=== PATIENT | male | born 1960 | race Caucasian/White ===

== ENCOUNTER → 2019-10-16 | Day surgery (SDC) | payer SELFPAY ==
[~2019-10-16] VITALS: Ht 167.6 cm; Wt 117.9 kg
[2019-10-16] VITALS (8 sets, daily range): BP systolic 108–149; BP diastolic 63–95
[~2019-10-16] MED LIST: ASPIRIN 81 MG CHEW TAB ONE; FENTANYL CITRATE/PF 100MCG/2 ML INJ ONE; HEPARIN SOD (PORCINE) 1000 UNIT/ML 30ML ONE; HEPARIN SOD/SOD CHLORIDE 2,000 ML ONE; IOPAMIDOL 370 MG/ML 200 ML INFUS..BTL INJ ONE; LIDOCAINE HCL 2% LOCAL 20 ML VIAL ONE; MIDAZOLAM HCL 2 MG/2 ML VIAL ONE; MORPHINE SULFATE INJ 4 MG/ML INJ 1ML IV PRN; MORPHINE SULFATE INJ 4 MG/ML INJ 1ML IV STA; NITROGLYCERIN/D5W 200 MCG/ML 250 ML ONE; ONDANSETRON HCL INJ 2MG/ML 2ML 2 MG/ML VIAL IV ONE; ONDANSETRON HCL INJ 2MG/ML 2ML 2 MG/ML VIAL IV PRN; SODIUM CHLORIDE 0.9% 1000ML 1,000 ML ONE; VERAPAMIL HCL 2.5 MG/ML 2 ML VIAL ONE
--- NOTE | 2019-10-16 20:38 | NUR ---
cath team call out per instructions of ER, per Dr. Stanford
[2019-10-16 20:41] LABS: BASOPHILS # (AUTO) 0.1 (0.0-0.1); BASOPHILS % 0.6 % (0.0-1.0); EOSINOPHILS # (AUTO) 0.2 (0.0-0.4); HEMATOCRIT 30.5 % (38.2-49.6); HEMOGLOBIN 9.3 g/dL (14.0-18.0); LYMPHOCYTES # (AUTO) 1.8 (1.0-3.2); LYMPHOCYTES % 20.7 % (18.0-39.1); MEAN CORPUSCULAR HEMOGLOBIN 24.8 pg (28-32); MEAN CORPUSCULAR HGB CONC 30.5 g/dL (31-35); MEAN CORPUSCULAR VOLUME 81.3 fL (81-99); MONOCYTES # (AUTO) 0.6 (0.2-0.8); MONOCYTES % 6.5 % (4.4-11.3); NEUTROPHILS # (AUTO) 6.2 (2.1-6.9); NEUTROPHILS % 69.6 % (38.7-80.0); PLATELET COUNT 308 x10e3/uL (140-360); RED BLOOD COUNT 3.75 x10e6/uL (4.3-5.7); RED CELL DISTRIBUTION WIDTH 16.6 % (11.7-14.4)
[2019-10-16 21:01] LABS: INR 1.16; PROTHROMBIN TIME 15.4 seconds (11.9-14.5)
[2019-10-16 21:02] LABS: PARTIAL THROMBOPLASTIN TIME 29.5 seconds (23.8-35.5)
[2019-10-16] MEDS: ASPIRIN 325 MG TAB PO ONE (21:08)
[2019-10-16] MEDS: HEPARIN SOD (PORCINE) 5,000 UNIT/ML VIAL IV STA (21:08)
[2019-10-16 21:10] LABS: ALANINE AMINOTRANSFERASE 50 IU/L (0-55); ALBUMIN 3.4 g/dL (3.5-5.0); ALBUMIN/GLOBULIN RATIO 0.9 (0.8-2.0); ALKALINE PHOSPHATASE 103 IU/L (40-150); ANION GAP 18.1 mmol/L (8-16); BLOOD UREA NITROGEN 30 mg/dL (7-26); BUN/CREATININE RATIO 24 (6-25); CALCIUM 9.2 mg/dL (8.4-10.2); CARBON DIOXIDE 21 mmol/L (22-29); CHLORIDE 103 mmol/L (98-107); CREATINE KINASE 89 IU/L (30-200); CREATININE, SERUM 1.24 mg/dL (0.72-1.25); EST GLOMERULAR FILTRATION RATE 60 ML/MIN (60-); GLUCOSE 289 mg/dL (74-118); POTASSIUM 5.1 mmol/L (3.5-5.1); SODIUM 137 mmol/L (136-145)
--- NOTE | 2019-10-16 21:21 | Diagnostic Imaging Report ---
Examination: Single AP view of the chest. COMPARISON: None. INDICATION: Angina DISCUSSION: Lines/tubes: None. Lungs: Pulmonary venous congestion. No pneumonia. Pleura: No pleural effusion or pneumothorax. Heart and mediastinum: Cardiomegaly Bones and soft tissues: No acute bony abnormalities. IMPRESSION: Cardiomegaly and pulmonary venous congestion Signed by: Dr. Lit Gallegos M.D. on 10/16/2019 9:18 PM
== END | disposition short-term general hospital (02) ==
LOC: ER 19:23 → ERHOLD 20:39 → UNDOADMIN 20:39 → CATH LAB 21:15
PROVIDERS: ATTEND Internal Medicine Interventional Cardiology
DX: I21.4 Non-ST elevation (NSTEMI) myocardial infarction (principal); I44.7 Left bundle-branch block, unspecified; R94.31 Abnormal electrocardiogram [ECG] [EKG]; I51.7 Cardiomegaly; I50.1 Left ventricular failure, unspecified
CPT/HCPCS: 36415; 71045; 80053; 82550; 82553; 83880; 84484; 85025; 85379; 85610; 85730; 93005; 93454; 99284; C1769; C1887; J1644 ×2; J2001; J2250; J2405; J3010; J7030; Q9967; 99152

== ENCOUNTER 2020-09-15 14:35 | Inpatient (IN) | payer MEDICAID ==
[~2020-09-15] VITALS: Ht 167.6 cm; Wt 114.0 kg
[2020-09-15] MEDS ORDERED: SODIUM CHLORIDE 0.9% 1000ML 1,000 ML IV STA (15:18)
[2020-09-15 15:48] LABS: BASOPHILS % 0.5 % (0.0-1.0); EOSINOPHILS # (AUTO) 0.2 (0.0-0.4); EOSINOPHILS % 2.5 % (0.0-6.0); HEMATOCRIT 32.8 % (38.2-49.6); LYMPHOCYTES # (AUTO) 0.7 (1.0-3.2); LYMPHOCYTES % 7.9 % (18.0-39.1); MEAN CORPUSCULAR HEMOGLOBIN 24.4 pg (28-32); MEAN CORPUSCULAR HGB CONC 30.5 g/dL (31-35); MONOCYTES # (AUTO) 0.6 (0.2-0.8); MONOCYTES % 6.5 % (4.4-11.3); NEUTROPHILS # (AUTO) 7.1 (2.1-6.9); NEUTROPHILS % 82.3 % (38.7-80.0); PLATELET COUNT 239 x10e3/uL (140-360); RED CELL DISTRIBUTION WIDTH 19.6 % (11.7-14.4)
[2020-09-15 15:59] LABS: INR 1.34; PARTIAL THROMBOPLASTIN TIME 27.3 seconds (23.8-35.5); PROTHROMBIN TIME 17.2 seconds (11.9-14.5)
[2020-09-15 16:10] LABS: CREATINE KINASE MB 10.7 ng/mL (0-5.0)
[2020-09-15] MEDS ORDERED: NOREPINEPHRINE INJ 4MG/4ML 8 MG in DEXTROSE 5% 250ML 250 ML IV STA (16:33)
[2020-09-15] MEDS ORDERED: NOREPINEPHRINE 8 MG/D5W 250 ML 250 ML ONE (17:01)
[2020-09-15] MEDS: CEFEPIME 2 GM/NS 0.9% 100 ML 100 ML IV SCH (17:25)
[2020-09-15 17:33] LABS: CLARITY,URINE CLOUDY (CLEAR); COLOR,URINE AMBER (YELLOW); KETONES,URINE TRACE (NEGATIVE); LEUKOCYTE ESTERASE ,URINE NEGATIVE (NEGATIVE); NITRITE,URINE NEGATIVE (NEGATIVE); PROTEIN,URINE DIPSTICK 1+ (NEGATIVE); URINE UROBILINOGEN 0.2 mg/dL (0.2 - 1)
[2020-09-15] MEDS ORDERED: VANCOMYCIN 1GM/NS 250 ML 250 ML IV ONE (17:45)
[2020-09-15 17:59] LABS: BACTERIA,URINE MANY /HPF; EPITHELIAL CELLS,URINE FEW /LPF
[2020-09-15] MEDS ORDERED: SODIUM CHLORIDE 0.9% 1000ML 1,000 ML ONE (19:24)
[2020-09-15 20:30] VITALS: BP 101/68
[2020-09-15 20:31] VITALS: BP 101/68
[2020-09-15 21:00] VITALS: BP 118/93
[2020-09-15] MEDS: ZOLPIDEM TARTRATE 5 MG TAB PO PRN (21:29)
[2020-09-15 22:00] VITALS: BP 130/92
[2020-09-15] MEDS ORDERED: SOD POLYSTYRENE SULFONATE SUSP 15 GM/60 ML BTL PO ONE (22:00)
[2020-09-15] MEDS ORDERED: MELATONIN10 M1 PO (22:03)
[2020-09-15] MEDS ORDERED: CLOPIDOGREL75 MG PO (22:03)
[2020-09-15] MEDS ORDERED: ATORVASTATIN CA20 MG PO (22:03)
[2020-09-15] MEDS ORDERED: CO Q-10200 MG PO (22:03)
[2020-09-15] MEDS ORDERED: GABAPENTIN300 MG PO (22:03)
[2020-09-15] MEDS ORDERED: GLIMEPIRIDE2 MG PO (22:03)
[2020-09-15] MEDS ORDERED: LISINOPRIL10 MG PO (22:03)
[2020-09-15] MEDS ORDERED: CLONAZEPAM0.5 MG PO (22:03)
[2020-09-15] MEDS ORDERED: METOLAZONE5 MG PO (22:03)
[2020-09-15] MEDS ORDERED: CARVEDILOL3.125 MG PO (22:03)
[2020-09-15] MEDS ORDERED: ASPIRIN81 MG PO (22:03)
[2020-09-15 22:56] LABS: ALBUMIN/GLOBULIN RATIO 0.7 (0.8-2.0); ANION GAP 24.4 mmol/L (8-16); CALCIUM 8.1 mg/dL (8.4-10.2); CREATININE, SERUM 4.94 mg/dL (0.72-1.25)
[2020-09-15] MEDS ORDERED: DEXTROSE 50% SYRINGE 50 ML IV STA (22:56)
[2020-09-15 23:00] VITALS: BP 138/87
[2020-09-15] MEDS ORDERED: FUROSEMIDE INJ 10 MG/ML 4 ML VIAL IV ONE (23:00)
[2020-09-15] MEDS ORDERED: CALCIUM GLUCONATE 10% INJ 4.65 MEQ in SODIUM CHLORIDE 0.9% 50ML 50 ML IV ONE (23:00)
[2020-09-15] MEDS ORDERED: INSULIN REGULAR, HUMAN 100 UNIT/1 ML 3ML VIAL IV ONE (23:00)
[2020-09-15 23:04] LABS: POTASSIUM 6.4 mmol/L (3.5-5.1)
[2020-09-16] VITALS (24 sets, daily range): BP systolic 73–146; BP diastolic 45–124
[2020-09-16 01:43] LABS: CREATINE KINASE MB 10.2 ng/mL (0-5.0)
[2020-09-16] MEDS ORDERED: NOREPINEPHRINE INJ 4MG/4ML 8 MG in DEXTROSE 5% 250ML 250 ML IV SCH (03:15)
[2020-09-16] MEDS ORDERED: NOREPINEPHRINE 8 MG/D5W 250 ML 250 ML ONE (03:26)
[2020-09-16] MEDS: NOREPINEPHRINE INJ 4MG/4ML 8 MG in DEXTROSE 5% 250ML 250 ML IV SCH (03:55)
[2020-09-16] MEDS: CEFEPIME 2 GM/NS 0.9% 100 ML 100 ML IV SCH ×2 (05:29→16:04)
[2020-09-16 05:56] LABS: BASOPHILS # (AUTO) 0.1 (0.0-0.1); BASOPHILS % 0.6 % (0.0-1.0); EOSINOPHILS # (AUTO) 0.3 (0.0-0.4); HEMATOCRIT 32.1 % (38.2-49.6); MEAN CORPUSCULAR HEMOGLOBIN 24.4 pg (28-32); MEAN CORPUSCULAR HGB CONC 31.2 g/dL (31-35); MEAN CORPUSCULAR VOLUME 78.3 fL (81-99); MONOCYTES # (AUTO) 0.9 (0.2-0.8); MONOCYTES % 8.9 % (4.4-11.3); NEUTROPHILS # (AUTO) 7.4 (2.1-6.9); PLATELET COUNT 274 x10e3/uL (140-360); RED CELL DISTRIBUTION WIDTH 19.2 % (11.7-14.4)
[2020-09-16 06:29] LABS: ALBUMIN/GLOBULIN RATIO 0.8 (0.8-2.0); ANION GAP 17.4 mmol/L (8-16); CALCIUM 8.8 mg/dL (8.4-10.2); CHOL/HDL RATIO 3.7 (3.9-4.7); CREATININE, SERUM 4.23 mg/dL (0.72-1.25); POTASSIUM 5.4 mmol/L (3.5-5.1)
[2020-09-16 06:57] LABS: CREATINE KINASE MB 7.3 ng/mL (0-5.0)
[2020-09-16] MEDS ORDERED: LIDOCAINE HCL 2% LOCAL 20 ML VIAL ONE (08:23)
[2020-09-16] MEDS ORDERED: LIDOCAINE HCL 2% LOCAL 20 ML VIAL INJ ONE (08:30)
[2020-09-16] MEDS ORDERED: DEXTROSE 50% SYRINGE 50 ML IV PRN (10:00)
[2020-09-16] MEDS: INSULIN LISPRO 100 UNIT/1 ML 3ML VIAL SQ SCH ×3 (11:41→21:00)
[2020-09-16] MEDS ORDERED: SODIUM CHLORIDE 0.9% 1000ML 2,000 ML ONE (16:26)
[2020-09-16] MEDS ORDERED: HEPARIN SOD (PORCINE) 1000 UNIT/ML SDV IV PRN (16:30)
[2020-09-16] MEDS ORDERED: SODIUM CHLORIDE 0.9% 1000ML 2,000 ML IV PRN (16:30)
[2020-09-16 17:15] LABS: CREATINE KINASE MB 3.6 ng/mL (0-5.0)
[2020-09-16] MEDS: MELATONIN 5 MG TABLET PO SCH (21:00)
[2020-09-17] VITALS (27 sets, daily range): BP systolic 64–124; BP diastolic 44–99
[2020-09-17] MEDS: ZOLPIDEM TARTRATE 5 MG TAB PO PRN (00:20)
[2020-09-17] MEDS: NOREPINEPHRINE INJ 4MG/4ML 8 MG in DEXTROSE 5% 250ML 250 ML IV SCH (03:30)
[2020-09-17 04:56] LABS: BASOPHILS % 0.4 % (0.0-1.0); EOSINOPHILS # (AUTO) 0.1 (0.0-0.4); EOSINOPHILS % 1.1 % (0.0-6.0); HEMOGLOBIN 9.7 g/dL (14.0-18.0); LYMPHOCYTES # (AUTO) 0.9 (1.0-3.2); LYMPHOCYTES % 7.7 % (18.0-39.1); MEAN CORPUSCULAR HEMOGLOBIN 24.6 pg (28-32); MEAN CORPUSCULAR HGB CONC 31.3 g/dL (31-35); MEAN CORPUSCULAR VOLUME 78.5 fL (81-99); MONOCYTES # (AUTO) 0.9 (0.2-0.8); MONOCYTES % 8.3 % (4.4-11.3); NEUTROPHILS # (AUTO) 9.2 (2.1-6.9); NEUTROPHILS % 82.1 % (38.7-80.0); RED BLOOD COUNT 3.95 x10e6/uL (4.3-5.7); RED CELL DISTRIBUTION WIDTH 19.8 % (11.7-14.4)
[2020-09-17 05:00] LABS: PLATELET COUNT 231 x10e3/uL (140-360)
[2020-09-17 05:26] LABS: ALBUMIN 2.7 g/dL (3.5-5.0); ALBUMIN/GLOBULIN RATIO 0.7 (0.8-2.0); ANION GAP 17.1 mmol/L (8-16); CREATININE, SERUM 2.48 mg/dL (0.72-1.25); POTASSIUM 4.1 mmol/L (3.5-5.1)
[2020-09-17] MEDS: CEFEPIME 2 GM/NS 0.9% 100 ML 100 ML IV SCH ×2 (05:36→17:29)
[2020-09-17] MEDS: CLOPIDOGREL BISULFATE 75 MG TAB PO SCH (08:19)
[2020-09-17] MEDS: INSULIN LISPRO 100 UNIT/1 ML 3ML VIAL SQ SCH ×4 (08:20→21:16)
[2020-09-17] MEDS: ACETAMINOPHEN 325 MG TAB PO PRN (11:45)
[2020-09-17] MEDS: MELATONIN 5 MG TABLET PO SCH (21:07)
[2020-09-17] MEDS: NOREPINEPHRINE 8 MG/D5W 250 ML 250 ML IV PRN (22:03)
[2020-09-18] VITALS (26 sets, daily range): BP systolic 83–115; BP diastolic 44–90
[2020-09-18] MEDS: NOREPINEPHRINE 8 MG/D5W 250 ML 250 ML IV PRN (03:41)
[2020-09-18 04:48] LABS: BASOPHILS # (AUTO) 0.1 (0.0-0.1); BASOPHILS % 0.3 % (0.0-1.0); EOSINOPHILS % 0.1 % (0.0-6.0); HEMATOCRIT 34.2 % (38.2-49.6); HEMOGLOBIN 10.6 g/dL (14.0-18.0); LYMPHOCYTES % 4.8 % (18.0-39.1); MEAN CORPUSCULAR HEMOGLOBIN 24.4 pg (28-32); MEAN CORPUSCULAR VOLUME 78.8 fL (81-99); MONOCYTES # (AUTO) 1.6 (0.2-0.8); MONOCYTES % 7.3 % (4.4-11.3); NEUTROPHILS # (AUTO) 18.3 (2.1-6.9); NEUTROPHILS % 86.7 % (38.7-80.0); PLATELET COUNT 255 x10e3/uL (140-360); RED BLOOD COUNT 4.34 x10e6/uL (4.3-5.7); RED CELL DISTRIBUTION WIDTH 19.9 % (11.7-14.4)
[2020-09-18] MEDS: CEFEPIME 2 GM/NS 0.9% 100 ML 100 ML IV SCH (05:26)
[2020-09-18 08:13] LABS: CALCIUM 8.3 mg/dL (8.4-10.2); CREATININE, SERUM 1.94 mg/dL (0.72-1.25)
[2020-09-18] MEDS: INSULIN LISPRO 100 UNIT/1 ML 3ML VIAL SQ SCH ×4 (08:26→21:36)
[2020-09-18] MEDS: CLOPIDOGREL BISULFATE 75 MG TAB PO SCH (08:28)
[2020-09-18] MEDS ORDERED: DIATRIZOATE MEGL/DIATRIZOA SOD 30 ML BTL PO ONE (15:51)
[2020-09-18 16:31] LABS: THYROID STIMULATING HORMONE 0.725 uIU/mL (0.350-4.940)
[2020-09-18] MEDS: METRONIDAZOLE 500MG/NS 100ML 100 ML IV SCH (16:31)
[2020-09-18] MEDS: MELATONIN 5 MG TABLET PO SCH (21:33)
[2020-09-19] VITALS (33 sets, daily range): BP systolic 80–137; BP diastolic 34–86
[2020-09-19] MEDS: METRONIDAZOLE 500MG/NS 100ML 100 ML IV SCH ×3 (01:02→16:51)
[2020-09-19] MEDS: NOREPINEPHRINE 8 MG/D5W 250 ML 250 ML IV PRN ×2 (03:36→13:35)
[2020-09-19 04:39] LABS: BASOPHILS % 0.2 % (0.0-1.0); EOSINOPHILS # (AUTO) 0.1 (0.0-0.4); EOSINOPHILS % 0.2 % (0.0-6.0); HEMATOCRIT 30.9 % (38.2-49.6); HEMOGLOBIN 9.5 g/dL (14.0-18.0); LYMPHOCYTES # (AUTO) 0.9 (1.0-3.2); LYMPHOCYTES % 4.2 % (18.0-39.1); MEAN CORPUSCULAR HEMOGLOBIN 24.3 pg (28-32); MEAN CORPUSCULAR HGB CONC 30.7 g/dL (31-35); MONOCYTES # (AUTO) 1.5 (0.2-0.8); MONOCYTES % 7.2 % (4.4-11.3); NEUTROPHILS # (AUTO) 18.5 (2.1-6.9); NEUTROPHILS % 87.4 % (38.7-80.0); PLATELET COUNT 214 x10e3/uL (140-360); RED BLOOD COUNT 3.91 x10e6/uL (4.3-5.7); RED CELL DISTRIBUTION WIDTH 19.9 % (11.7-14.4)
[2020-09-19 05:03] LABS: ANION GAP 15.5 mmol/L (8-16); CALCIUM 7.9 mg/dL (8.4-10.2); CREATININE, SERUM 1.9 mg/dL (0.72-1.25); POTASSIUM 3.5 mmol/L (3.5-5.1)
[2020-09-19] MEDS: INSULIN LISPRO 100 UNIT/1 ML 3ML VIAL SQ SCH ×4 (07:30→20:41)
[2020-09-19] MEDS: VANCOMYCIN 250MG/5ML ORAL SOLN PO SCH ×3 (09:10→22:30)
[2020-09-19] MEDS: CLOPIDOGREL BISULFATE 75 MG TAB PO SCH (09:10)
[2020-09-19] MEDS ORDERED: POTASSIUM CHLORIDE 20 MEQ TAB CR PO ONE (17:45)
[2020-09-19] MEDS: MELATONIN 5 MG TABLET PO SCH (20:41)
[2020-09-20] VITALS (26 sets, daily range): BP systolic 81–112; BP diastolic 54–75
[2020-09-20] MEDS: METRONIDAZOLE 500MG/NS 100ML 100 ML IV SCH ×3 (01:56→16:51)
[2020-09-20] MEDS: VANCOMYCIN 250MG/5ML ORAL SOLN PO SCH ×3 (05:34→21:11)
[2020-09-20 05:54] LABS: BASOPHILS % 0.2 % (0.0-1.0); EOSINOPHILS # (AUTO) 0.2 (0.0-0.4); EOSINOPHILS % 0.9 % (0.0-6.0); HEMATOCRIT 31.2 % (38.2-49.6); HEMOGLOBIN 9.6 g/dL (14.0-18.0); LYMPHOCYTES # (AUTO) 0.8 (1.0-3.2); LYMPHOCYTES % 3.9 % (18.0-39.1); MEAN CORPUSCULAR HEMOGLOBIN 24.7 pg (28-32); MEAN CORPUSCULAR HGB CONC 30.8 g/dL (31-35); MEAN CORPUSCULAR VOLUME 80.4 fL (81-99); MONOCYTES # (AUTO) 1.4 (0.2-0.8); MONOCYTES % 6.7 % (4.4-11.3); NEUTROPHILS # (AUTO) 17.9 (2.1-6.9); NEUTROPHILS % 87.6 % (38.7-80.0); PLATELET COUNT 232 x10e3/uL (140-360); RED BLOOD COUNT 3.88 x10e6/uL (4.3-5.7); RED CELL DISTRIBUTION WIDTH 19.9 % (11.7-14.4)
[2020-09-20 06:27] LABS: ANION GAP 14.6 mmol/L (8-16); CREATININE, SERUM 2.2 mg/dL (0.72-1.25); POTASSIUM 3.6 mmol/L (3.5-5.1)
[2020-09-20 06:37] LABS: CALCIUM 7.9 mg/dL (8.4-10.2)
[2020-09-20 06:58] LABS: MAGNESIUM 2.3 MG/DL (1.3-2.1); PHOSPHORUS 4.3 MG/DL (2.3-4.7)
[2020-09-20] MEDS: INSULIN LISPRO 100 UNIT/1 ML 3ML VIAL SQ SCH ×4 (07:50→20:46)
[2020-09-20] MEDS: CLOPIDOGREL BISULFATE 75 MG TAB PO SCH (08:08)
[2020-09-20] MEDS: CEFEPIME 1GM/NS 0.9% 50 ML 50 ML IV SCH (15:58)
[2020-09-20] MEDS: FUROSEMIDE INJ 10 MG/ML 4 ML VIAL IV SCH ×2 (15:58→20:12)
[2020-09-20] MEDS: MELATONIN 5 MG TABLET PO SCH (20:12)
[2020-09-21] VITALS (18 sets, daily range): BP systolic 71–124; BP diastolic 53–92
[2020-09-21] MEDS: METRONIDAZOLE 500MG/NS 100ML 100 ML IV SCH ×3 (01:51→17:22)
[2020-09-21] MEDS: VANCOMYCIN 250MG/5ML ORAL SOLN PO SCH ×3 (05:43→22:13)
[2020-09-21 06:19] LABS: ANION GAP 16.6 mmol/L (8-16); CALCIUM 7.9 mg/dL (8.4-10.2); CREATININE, SERUM 2.72 mg/dL (0.72-1.25); POTASSIUM 3.6 mmol/L (3.5-5.1)
[2020-09-21 06:34] LABS: BASOPHILS # (AUTO) 0.1 (0.0-0.1); BASOPHILS % 0.2 % (0.0-1.0); EOSINOPHILS # (AUTO) 0.2 (0.0-0.4); EOSINOPHILS % 0.8 % (0.0-6.0); HEMATOCRIT 32.9 % (38.2-49.6); LYMPHOCYTES # (AUTO) 0.8 (1.0-3.2); LYMPHOCYTES % 3.7 % (18.0-39.1); MEAN CORPUSCULAR HEMOGLOBIN 24.2 pg (28-32); MEAN CORPUSCULAR HGB CONC 30.4 g/dL (31-35); MEAN CORPUSCULAR VOLUME 79.5 fL (81-99); MONOCYTES # (AUTO) 1.7 (0.2-0.8); MONOCYTES % 8.5 % (4.4-11.3); NEUTROPHILS # (AUTO) 17.5 (2.1-6.9); NEUTROPHILS % 86.2 % (38.7-80.0); PLATELET COUNT 274 x10e3/uL (140-360); RED BLOOD COUNT 4.14 x10e6/uL (4.3-5.7); RED CELL DISTRIBUTION WIDTH 19.9 % (11.7-14.4)
[2020-09-21] MEDS: INSULIN LISPRO 100 UNIT/1 ML 3ML VIAL SQ SCH ×4 (07:57→22:05)
[2020-09-21] MEDS: FUROSEMIDE INJ 10 MG/ML 4 ML VIAL IV SCH (08:06)
[2020-09-21] MEDS: CLOPIDOGREL BISULFATE 75 MG TAB PO SCH (08:06)
[2020-09-21] MEDS: MIDODRINE HCL 5 MG TABLET PO SCH ×3 (08:25→17:21)
[2020-09-21] MEDS: ONDANSETRON HCL INJ 2MG/ML 2ML 2 MG/ML VIAL IV PRN (09:19)
[2020-09-21] MEDS: ACETAMINOPHEN 325 MG TAB PO PRN (09:19)
[2020-09-21] MEDS: NOREPINEPHRINE 8 MG/D5W 250 ML 250 ML IV PRN ×2 (09:32→17:18)
[2020-09-21] MEDS ORDERED: ALBUMIN 25% 12.5GM 50ML 100 ML IV ONE (12:30)
[2020-09-21] MEDS ORDERED: ALBUMIN 25% 25GM 100ML 0.25 GM/ML BTL IV ONE (12:30)
[2020-09-21] MEDS: CLONAZEPAM 0.5 MG TAB PO PRN (13:00)
[2020-09-21] MEDS: CEFEPIME 1GM/NS 0.9% 50 ML 50 ML IV SCH (13:56)
[2020-09-21] MEDS: MELATONIN 5 MG TABLET PO SCH (22:04)
[2020-09-22] VITALS (15 sets, daily range): BP systolic 84–129; BP diastolic 54–83
[2020-09-22] MEDS: METRONIDAZOLE 500MG/NS 100ML 100 ML IV SCH ×2 (01:51→07:23)
[2020-09-22] MEDS: ONDANSETRON HCL INJ 2MG/ML 2ML 2 MG/ML VIAL IV PRN (01:52)
[2020-09-22] MEDS: VANCOMYCIN 250MG/5ML ORAL SOLN PO SCH ×2 (06:04→13:39)
[2020-09-22 07:15] LABS: BASOPHILS % 0.2 % (0.0-1.0); EOSINOPHILS # (AUTO) 0.3 (0.0-0.4); EOSINOPHILS % 1.5 % (0.0-6.0); HEMOGLOBIN 9.7 g/dL (14.0-18.0); LYMPHOCYTES # (AUTO) 0.9 (1.0-3.2); LYMPHOCYTES % 5.5 % (18.0-39.1); MEAN CORPUSCULAR HEMOGLOBIN 24.3 pg (28-32); MEAN CORPUSCULAR HGB CONC 30.3 g/dL (31-35); MONOCYTES # (AUTO) 1.6 (0.2-0.8); MONOCYTES % 9.7 % (4.4-11.3); NEUTROPHILS # (AUTO) 13.8 (2.1-6.9); NEUTROPHILS % 81.9 % (38.7-80.0); PLATELET COUNT 308 x10e3/uL (140-360)
[2020-09-22] MEDS: INSULIN LISPRO 100 UNIT/1 ML 3ML VIAL SQ SCH ×4 (07:15→20:50)
[2020-09-22] MEDS: MIDODRINE HCL 5 MG TABLET PO SCH ×3 (07:23→16:30)
[2020-09-22] MEDS: CLONAZEPAM 0.5 MG TAB PO PRN (07:24)
[2020-09-22] MEDS: CLOPIDOGREL BISULFATE 75 MG TAB PO SCH (07:24)
[2020-09-22 07:34] LABS: ALBUMIN 2.5 g/dL (3.5-5.0); ALBUMIN/GLOBULIN RATIO 0.6 (0.8-2.0); ANION GAP 19.7 mmol/L (8-16); CALCIUM 7.9 mg/dL (8.4-10.2); CREATININE, SERUM 2.65 mg/dL (0.72-1.25); POTASSIUM 3.7 mmol/L (3.5-5.1)
[2020-09-22] MEDS: NOREPINEPHRINE 8 MG/D5W 250 ML 250 ML IV PRN (08:48)
[2020-09-22] MEDS: FUROSEMIDE INJ 10 MG/ML 4 ML VIAL IV SCH (11:32)
[2020-09-22] MEDS: MELATONIN 5 MG TABLET PO SCH (20:50)
[2020-09-23] VITALS (16 sets, daily range): BP systolic 78–118; BP diastolic 47–91
[2020-09-23 05:30] LABS: BASOPHILS % 0.3 % (0.0-1.0); EOSINOPHILS # (AUTO) 0.2 (0.0-0.4); EOSINOPHILS % 1.7 % (0.0-6.0); HEMATOCRIT 31.6 % (38.2-49.6); HEMOGLOBIN 9.7 g/dL (14.0-18.0); LYMPHOCYTES # (AUTO) 0.8 (1.0-3.2); LYMPHOCYTES % 5.5 % (18.0-39.1); MEAN CORPUSCULAR HEMOGLOBIN 24.6 pg (28-32); MEAN CORPUSCULAR HGB CONC 30.7 g/dL (31-35); MEAN CORPUSCULAR VOLUME 80.2 fL (81-99); MONOCYTES # (AUTO) 1.5 (0.2-0.8); MONOCYTES % 10.2 % (4.4-11.3); NEUTROPHILS # (AUTO) 11.5 (2.1-6.9); NEUTROPHILS % 80.8 % (38.7-80.0); PLATELET COUNT 347 x10e3/uL (140-360); RED BLOOD COUNT 3.94 x10e6/uL (4.3-5.7); RED CELL DISTRIBUTION WIDTH 19.6 % (11.7-14.4)
[2020-09-23 05:50] LABS: ANION GAP 20.7 mmol/L (8-16); CALCIUM 7.9 mg/dL (8.4-10.2); CREATININE, SERUM 3.35 mg/dL (0.72-1.25); MAGNESIUM 2.1 MG/DL (1.3-2.1); PHOSPHORUS 3.9 MG/DL (2.3-4.7); POTASSIUM 3.7 mmol/L (3.5-5.1)
[2020-09-23] MEDS: INSULIN LISPRO 100 UNIT/1 ML 3ML VIAL SQ SCH ×4 (07:21→21:19)
[2020-09-23] MEDS: MIDODRINE HCL 5 MG TABLET PO SCH ×3 (07:57→16:21)
[2020-09-23] MEDS: FUROSEMIDE INJ 10 MG/ML 4 ML VIAL IV SCH (08:56)
[2020-09-23] MEDS: CLOPIDOGREL BISULFATE 75 MG TAB PO SCH (08:56)
[2020-09-23] MEDS ORDERED: LOPERAMIDE HCL 2 MG CAP PO PRN (09:00)
[2020-09-23] MEDS: ONDANSETRON HCL INJ 2MG/ML 2ML 2 MG/ML VIAL IV PRN (17:53)
[2020-09-23] MEDS: MELATONIN 5 MG TABLET PO SCH (21:19)
[2020-09-24] VITALS (29 sets, daily range): BP systolic 65–137; BP diastolic 46–107
[2020-09-24 06:29] LABS: BASOPHILS % 0.3 % (0.0-1.0); EOSINOPHILS # (AUTO) 0.3 (0.0-0.4); EOSINOPHILS % 2.1 % (0.0-6.0); HEMATOCRIT 31.2 % (38.2-49.6); HEMOGLOBIN 9.5 g/dL (14.0-18.0); LYMPHOCYTES # (AUTO) 0.9 (1.0-3.2); LYMPHOCYTES % 6.9 % (18.0-39.1); MEAN CORPUSCULAR HEMOGLOBIN 24.4 pg (28-32); MEAN CORPUSCULAR HGB CONC 30.4 g/dL (31-35); MEAN CORPUSCULAR VOLUME 80.2 fL (81-99); MONOCYTES # (AUTO) 0.9 (0.2-0.8); MONOCYTES % 7.2 % (4.4-11.3); NEUTROPHILS # (AUTO) 10.5 (2.1-6.9); NEUTROPHILS % 82.3 % (38.7-80.0); PLATELET COUNT 365 x10e3/uL (140-360); RED BLOOD COUNT 3.89 x10e6/uL (4.3-5.7); RED CELL DISTRIBUTION WIDTH 19.8 % (11.7-14.4)
[2020-09-24 06:48] LABS: ALBUMIN/GLOBULIN RATIO 0.5 (0.8-2.0); ANION GAP 18.8 mmol/L (8-16); CALCIUM 7.8 mg/dL (8.4-10.2); CREATININE, SERUM 4.18 mg/dL (0.72-1.25); POTASSIUM 3.8 mmol/L (3.5-5.1)
[2020-09-24 07:10] LABS: ANION GAP 18.8 mmol/L (8-16); CALCIUM 7.8 mg/dL (8.4-10.2); CREATININE, SERUM 4.24 mg/dL (0.72-1.25); MAGNESIUM 2.1 MG/DL (1.3-2.1); POTASSIUM 3.8 mmol/L (3.5-5.1)
[2020-09-24] MEDS: INSULIN LISPRO 100 UNIT/1 ML 3ML VIAL SQ SCH ×4 (07:30→22:23)
[2020-09-24] MEDS: FUROSEMIDE INJ 10 MG/ML 4 ML VIAL IV SCH (08:12)
[2020-09-24] MEDS: MIDODRINE HCL 5 MG TABLET PO SCH ×3 (08:12→16:07)
[2020-09-24] MEDS: CLOPIDOGREL BISULFATE 75 MG TAB PO SCH (08:12)
[2020-09-24] MEDS ORDERED: HEPARIN SOD (PORCINE) 1000 UNIT/ML SDV IV PRN (10:15)
[2020-09-24] MEDS: ACETAMINOPHEN 325 MG TAB PO PRN (12:00)
[2020-09-24] MEDS: ONDANSETRON HCL INJ 2MG/ML 2ML 2 MG/ML VIAL IV PRN (16:07)
[2020-09-24] MEDS: MELATONIN 5 MG TABLET PO SCH (22:36)
[2020-09-25] VITALS (28 sets, daily range): BP systolic 74–103; BP diastolic 44–76
[2020-09-25 04:57] LABS: BASOPHILS # (AUTO) 0.1 (0.0-0.1); BASOPHILS % 0.3 % (0.0-1.0); EOSINOPHILS # (AUTO) 0.1 (0.0-0.4); EOSINOPHILS % 0.5 % (0.0-6.0); HEMOGLOBIN 9.8 g/dL (14.0-18.0); LYMPHOCYTES # (AUTO) 0.8 (1.0-3.2); LYMPHOCYTES % 4.8 % (18.0-39.1); MEAN CORPUSCULAR HEMOGLOBIN 24.3 pg (28-32); MEAN CORPUSCULAR HGB CONC 30.6 g/dL (31-35); MEAN CORPUSCULAR VOLUME 79.4 fL (81-99); MONOCYTES # (AUTO) 1.1 (0.2-0.8); MONOCYTES % 6.8 % (4.4-11.3); NEUTROPHILS # (AUTO) 14.2 (2.1-6.9); PLATELET COUNT 446 x10e3/uL (140-360); RED BLOOD COUNT 4.03 x10e6/uL (4.3-5.7); RED CELL DISTRIBUTION WIDTH 20.5 % (11.7-14.4)
[2020-09-25 05:27] LABS: ANION GAP 14.9 mmol/L (8-16); CALCIUM 8.1 mg/dL (8.4-10.2); CREATININE, SERUM 3.5 mg/dL (0.72-1.25); POTASSIUM 3.9 mmol/L (3.5-5.1)
[2020-09-25] MEDS: FUROSEMIDE INJ 10 MG/ML 4 ML VIAL IV SCH (08:14)
[2020-09-25] MEDS: MIDODRINE HCL 5 MG TABLET PO SCH ×3 (08:14→16:03)
[2020-09-25] MEDS: CLOPIDOGREL BISULFATE 75 MG TAB PO SCH (08:14)
[2020-09-25] MEDS: INSULIN LISPRO 100 UNIT/1 ML 3ML VIAL SQ SCH ×4 (08:15→20:29)
[2020-09-25] MEDS: ONDANSETRON HCL INJ 2MG/ML 2ML 2 MG/ML VIAL IV PRN (12:27)
[2020-09-25] MEDS: ACETAMINOPHEN 325 MG TAB PO PRN (13:00)
[2020-09-25] MEDS: BELLADONNA ALK/PHENOBARBITAL 5 ML UDC PO SCH ×2 (16:03→20:29)
[2020-09-25 16:17] LABS: FREE THYROXINE INDEX 1.6721 (1.4-3.8); THYROID STIMULATING HORMONE 1.32 uIU/mL (0.350-4.940)
[2020-09-25] MEDS: MELATONIN 5 MG TABLET PO SCH (20:29)
[2020-09-26] VITALS (16 sets, daily range): BP systolic 81–120; BP diastolic 52–85
[2020-09-26 04:42] LABS: BASOPHILS % 0.2 % (0.0-1.0); EOSINOPHILS # (AUTO) 0.3 (0.0-0.4); EOSINOPHILS % 1.5 % (0.0-6.0); HEMATOCRIT 33.5 % (38.2-49.6); HEMOGLOBIN 10.1 g/dL (14.0-18.0); LYMPHOCYTES % 5.7 % (18.0-39.1); MEAN CORPUSCULAR HGB CONC 30.1 g/dL (31-35); MEAN CORPUSCULAR VOLUME 79.6 fL (81-99); MONOCYTES # (AUTO) 0.9 (0.2-0.8); MONOCYTES % 4.9 % (4.4-11.3); NEUTROPHILS # (AUTO) 14.9 (2.1-6.9); NEUTROPHILS % 86.1 % (38.7-80.0); PLATELET COUNT 499 x10e3/uL (140-360); RED BLOOD COUNT 4.21 x10e6/uL (4.3-5.7)
[2020-09-26 05:03] LABS: ANION GAP 20.2 mmol/L (8-16); CALCIUM 8.4 mg/dL (8.4-10.2); CREATININE, SERUM 4.53 mg/dL (0.72-1.25); MAGNESIUM 2.2 MG/DL (1.3-2.1); PHOSPHORUS 4.1 MG/DL (2.3-4.7); POTASSIUM 4.2 mmol/L (3.5-5.1)
[2020-09-26] MEDS: BELLADONNA ALK/PHENOBARBITAL 5 ML UDC PO SCH ×3 (08:21→20:28)
[2020-09-26] MEDS: INSULIN LISPRO 100 UNIT/1 ML 3ML VIAL SQ SCH ×4 (08:21→20:29)
[2020-09-26] MEDS: MIDODRINE HCL 5 MG TABLET PO SCH ×3 (08:21→15:04)
[2020-09-26] MEDS: ONDANSETRON HCL INJ 2MG/ML 2ML 2 MG/ML VIAL IV PRN (08:34)
[2020-09-26] MEDS: CEFTRIAXONE SOD 2 GM/NS 100 ML 100 ML IV SCH (11:19)
[2020-09-26] MEDS: CLONAZEPAM 0.5 MG TAB PO PRN (11:31)
[2020-09-26] MEDS: GABAPENTIN 300 MG CAP PO SCH ×2 (14:57→20:28)
[2020-09-26] MEDS: MELATONIN 5 MG TABLET PO SCH (20:28)
[2020-09-27] VITALS (16 sets, daily range): BP systolic 96–122; BP diastolic 55–76
[2020-09-27] MEDS: INSULIN LISPRO 100 UNIT/1 ML 3ML VIAL SQ SCH ×4 (07:35→20:57)
[2020-09-27] MEDS: MIDODRINE HCL 5 MG TABLET PO SCH ×3 (07:38→16:22)
[2020-09-27] MEDS: GABAPENTIN 300 MG CAP PO SCH ×3 (08:01→20:54)
[2020-09-27] MEDS: BELLADONNA ALK/PHENOBARBITAL 5 ML UDC PO SCH ×3 (08:01→20:53)
[2020-09-27] MEDS: CEFTRIAXONE SOD 2 GM/NS 100 ML 100 ML IV SCH (11:12)
[2020-09-27] MEDS: CLONAZEPAM 0.5 MG TAB PO PRN (15:16)
[2020-09-27] MEDS: MELATONIN 5 MG TABLET PO SCH (20:53)
[2020-09-28] VITALS (29 sets, daily range): BP systolic 76–120; BP diastolic 53–85
[2020-09-28 04:47] LABS: BASOPHILS # (AUTO) 0.1 (0.0-0.1); BASOPHILS % 0.4 % (0.0-1.0); EOSINOPHILS # (AUTO) 0.4 (0.0-0.4); EOSINOPHILS % 2.1 % (0.0-6.0); HEMATOCRIT 32.4 % (38.2-49.6); HEMOGLOBIN 9.7 g/dL (14.0-18.0); LYMPHOCYTES # (AUTO) 0.9 (1.0-3.2); LYMPHOCYTES % 5.4 % (18.0-39.1); MEAN CORPUSCULAR HEMOGLOBIN 24.3 pg (28-32); MEAN CORPUSCULAR HGB CONC 29.9 g/dL (31-35); MONOCYTES % 5.9 % (4.4-11.3); NEUTROPHILS # (AUTO) 14.3 (2.1-6.9); NEUTROPHILS % 84.4 % (38.7-80.0); PLATELET COUNT 422 x10e3/uL (140-360); RED CELL DISTRIBUTION WIDTH 20.9 % (11.7-14.4)
[2020-09-28 05:05] LABS: ALBUMIN/GLOBULIN RATIO 0.4 (0.8-2.0); ANION GAP 14.9 mmol/L (8-16); CALCIUM 8.1 mg/dL (8.4-10.2); CREATININE, SERUM 3.85 mg/dL (0.72-1.25); POTASSIUM 3.9 mmol/L (3.5-5.1)
[2020-09-28 06:37] LABS: ANISOCYTOSIS MARKED; BURR CELLS SLIGHT; HYPOCHROMASIA SLIGHT; PLATELET ESTIMATE SLIGHTLY INCREASED; RBC MORPHOLOGY COMMENT ABNORMAL
[2020-09-28 06:38] LABS: ACANTHOCYTES FEW; HELMET CELLS SLIGHT; POLYCHROMASIA FEW
[2020-09-28 06:39] LABS: OVALOCYTES FEW; PLATELET MORPHOLOGY COMMENT FEW LARGE
[2020-09-28 06:40] LABS: PLATELET CLUMPS RARE
[2020-09-28] MEDS: MIDODRINE HCL 5 MG TABLET PO SCH ×3 (08:27→16:21)
[2020-09-28] MEDS: BELLADONNA ALK/PHENOBARBITAL 5 ML UDC PO SCH ×3 (08:28→21:04)
[2020-09-28] MEDS: GABAPENTIN 300 MG CAP PO SCH ×3 (08:28→21:04)
[2020-09-28] MEDS: INSULIN LISPRO 100 UNIT/1 ML 3ML VIAL SQ SCH ×4 (08:33→21:05)
[2020-09-28] MEDS: CEFTRIAXONE SOD 2 GM/NS 100 ML 100 ML IV SCH (11:01)
[2020-09-28] MEDS: ONDANSETRON HCL INJ 2MG/ML 2ML 2 MG/ML VIAL IV PRN (13:37)
[2020-09-28] MEDS: MELATONIN 5 MG TABLET PO SCH (21:04)
[2020-09-29] VITALS (25 sets, daily range): BP systolic 80–107; BP diastolic 49–74
[2020-09-29 04:39] LABS: BASOPHILS # (AUTO) 0.1 (0.0-0.1); BASOPHILS % 0.4 % (0.0-1.0); EOSINOPHILS # (AUTO) 0.1 (0.0-0.4); EOSINOPHILS % 0.6 % (0.0-6.0); HEMATOCRIT 30.8 % (38.2-49.6); HEMOGLOBIN 9.1 g/dL (14.0-18.0); LYMPHOCYTES # (AUTO) 0.8 (1.0-3.2); LYMPHOCYTES % 5.4 % (18.0-39.1); MEAN CORPUSCULAR HEMOGLOBIN 24.4 pg (28-32); MEAN CORPUSCULAR HGB CONC 29.5 g/dL (31-35); MEAN CORPUSCULAR VOLUME 82.6 fL (81-99); MONOCYTES # (AUTO) 0.9 (0.2-0.8); MONOCYTES % 6.5 % (4.4-11.3); NEUTROPHILS # (AUTO) 11.8 (2.1-6.9); NEUTROPHILS % 85.4 % (38.7-80.0); PLATELET COUNT 360 x10e3/uL (140-360); RED BLOOD COUNT 3.73 x10e6/uL (4.3-5.7); RED CELL DISTRIBUTION WIDTH 20.9 % (11.7-14.4)
[2020-09-29 05:08] LABS: ALBUMIN 1.8 g/dL (3.5-5.0); ALBUMIN/GLOBULIN RATIO 0.4 (0.8-2.0); ANION GAP 13.9 mmol/L (8-16); CALCIUM 7.9 mg/dL (8.4-10.2); CREATININE, SERUM 4.8 mg/dL (0.72-1.25); POTASSIUM 3.9 mmol/L (3.5-5.1)
[2020-09-29] MEDS: GABAPENTIN 300 MG CAP PO SCH ×4 (08:00→20:48)
[2020-09-29] MEDS: MIDODRINE HCL 5 MG TABLET PO SCH ×3 (08:00→17:12)
[2020-09-29] MEDS: BELLADONNA ALK/PHENOBARBITAL 5 ML UDC PO SCH ×4 (08:00→20:48)
[2020-09-29] MEDS: INSULIN LISPRO 100 UNIT/1 ML 3ML VIAL SQ SCH ×4 (08:01→21:22)
[2020-09-29] MEDS: CEFTRIAXONE SOD 2 GM/NS 100 ML 100 ML IV SCH (11:23)
[2020-09-29] MEDS ORDERED: ALBUMIN 25% 12.5GM 50ML 100 ML IV ONE (14:22)
[2020-09-29] MEDS: MELATONIN 5 MG TABLET PO SCH (20:48)
[2020-09-29] MEDS ORDERED: MELATONIN 5 MG TABLET PO SCH (21:00)
[2020-09-30] VITALS (17 sets, daily range): BP systolic 76–108; BP diastolic 47–84
[2020-09-30 04:31] LABS: BASOPHILS # (AUTO) 0.1 (0.0-0.1); BASOPHILS % 0.5 % (0.0-1.0); EOSINOPHILS % 0.3 % (0.0-6.0); HEMATOCRIT 29.7 % (38.2-49.6); HEMOGLOBIN 8.8 g/dL (14.0-18.0); LYMPHOCYTES # (AUTO) 0.7 (1.0-3.2); LYMPHOCYTES % 5.8 % (18.0-39.1); MEAN CORPUSCULAR HEMOGLOBIN 24.2 pg (28-32); MEAN CORPUSCULAR HGB CONC 29.6 g/dL (31-35); MEAN CORPUSCULAR VOLUME 81.8 fL (81-99); MONOCYTES # (AUTO) 0.8 (0.2-0.8); MONOCYTES % 6.4 % (4.4-11.3); NEUTROPHILS # (AUTO) 10.9 (2.1-6.9); PLATELET COUNT 369 x10e3/uL (140-360); RED BLOOD COUNT 3.63 x10e6/uL (4.3-5.7); RED CELL DISTRIBUTION WIDTH 21.6 % (11.7-14.4)
[2020-09-30 04:54] LABS: ALBUMIN/GLOBULIN RATIO 0.4 (0.8-2.0); ANION GAP 16.9 mmol/L (8-16); CREATININE, SERUM 3.98 mg/dL (0.72-1.25); POTASSIUM 3.9 mmol/L (3.5-5.1)
[2020-09-30] MEDS: INSULIN LISPRO 100 UNIT/1 ML 3ML VIAL SQ SCH ×4 (08:02→21:36)
[2020-09-30] MEDS: GABAPENTIN 300 MG CAP PO SCH ×3 (08:05→21:32)
[2020-09-30] MEDS: MIDODRINE HCL 5 MG TABLET PO SCH ×3 (08:05→16:48)
[2020-09-30] MEDS: BELLADONNA ALK/PHENOBARBITAL 5 ML UDC PO SCH ×3 (08:05→21:32)
[2020-09-30] MEDS: CEFTRIAXONE SOD 2 GM/NS 100 ML 100 ML IV SCH (11:59)
[2020-09-30] MEDS: MELATONIN 5 MG TABLET PO SCH (21:32)
[2020-10-01] VITALS (8 sets, daily range): BP systolic 94–117; BP diastolic 64–79
[2020-10-01 05:27] LABS: BASOPHILS # (AUTO) 0.1 (0.0-0.1); BASOPHILS % 0.5 % (0.0-1.0); EOSINOPHILS # (AUTO) 0.1 (0.0-0.4); EOSINOPHILS % 0.7 % (0.0-6.0); HEMATOCRIT 30.8 % (38.2-49.6); HEMOGLOBIN 9.2 g/dL (14.0-18.0); LYMPHOCYTES # (AUTO) 0.8 (1.0-3.2); MEAN CORPUSCULAR HEMOGLOBIN 24.3 pg (28-32); MEAN CORPUSCULAR HGB CONC 29.9 g/dL (31-35); MEAN CORPUSCULAR VOLUME 81.5 fL (81-99); NEUTROPHILS # (AUTO) 11.4 (2.1-6.9); NEUTROPHILS % 84.2 % (38.7-80.0); PLATELET COUNT 398 x10e3/uL (140-360); RED BLOOD COUNT 3.78 x10e6/uL (4.3-5.7); RED CELL DISTRIBUTION WIDTH 21.4 % (11.7-14.4)
[2020-10-01 05:57] LABS: ALBUMIN/GLOBULIN RATIO 0.4 (0.8-2.0); ANION GAP 19.1 mmol/L (8-16); CALCIUM 7.9 mg/dL (8.4-10.2); CREATININE, SERUM 4.77 mg/dL (0.72-1.25); POTASSIUM 4.1 mmol/L (3.5-5.1)
[2020-10-01 08:29] LABS: INR 1.12
[2020-10-01] MEDS: MIDODRINE HCL 5 MG TABLET PO SCH ×4 (08:35→16:51)
[2020-10-01] MEDS: BELLADONNA ALK/PHENOBARBITAL 5 ML UDC PO SCH ×3 (08:35→20:53)
[2020-10-01] MEDS: GABAPENTIN 300 MG CAP PO SCH ×3 (08:35→20:53)
[2020-10-01] MEDS ORDERED: SODIUM CHLORIDE 0.9% 250ML 250 ML ONE ×2 (09:27→14:24)
[2020-10-01] MEDS: INSULIN LISPRO 100 UNIT/1 ML 3ML VIAL SQ SCH ×4 (10:34→20:58)
[2020-10-01] MEDS: CEFTRIAXONE SOD 2 GM/NS 100 ML 100 ML IV SCH (11:31)
[2020-10-01] MEDS ORDERED: MIDAZOLAM HCL 2 MG/2 ML VIAL ONE (14:20)
[2020-10-01] MEDS ORDERED: FENTANYL CITRATE/PF 100MCG/2 ML INJ ONE (14:20)
[2020-10-01] MEDS ORDERED: HEPARIN SOD (PORCINE) 1000 UNIT/ML SDV ONE (14:28)
[2020-10-01] MEDS ORDERED: SODIUM CHLORIDE 0.9% 1000ML 1,000 ML ONE (15:09)
[2020-10-01] MEDS ORDERED: ALBUMIN 25% 12.5GM 0.25 GM/ML BTL IV PRN (16:15)
[2020-10-01] MEDS ORDERED: HEPARIN SOD (PORCINE) 1000 UNIT/ML SDV IV PRN (16:15)
[2020-10-01] MEDS ORDERED: SODIUM CHLORIDE 0.9% 1000ML 2,000 ML IV PRN (16:15)
[2020-10-01] MEDS: MELATONIN 5 MG TABLET PO SCH (20:53)
[2020-10-02 00:44] VITALS: BP 109/56
[2020-10-02 05:20] VITALS: BP 98/69
[2020-10-02 08:15] VITALS: BP_SYST 102; BP_SYST 63; BP_DIAS 49; BP_DIAS 66
[2020-10-02] MEDS: BELLADONNA ALK/PHENOBARBITAL 5 ML UDC PO SCH (08:22)
[2020-10-02] MEDS: GABAPENTIN 300 MG CAP PO SCH (08:22)
[2020-10-02] MEDS: MIDODRINE HCL 5 MG TABLET PO SCH (08:22)
[2020-10-02] MEDS: CEFTRIAXONE SOD 2 GM/NS 100 ML 100 ML IV SCH (08:27)
[2020-10-02 08:29] VITALS: BP 100/66
[2020-10-02 09:21] VITALS: BP 65/39
[2020-10-02] MEDS ORDERED: NPH, HUMAN INSULIN ISOPHANE 100 UNIT/1 ML 3ML VIAL SQ ONE (09:50)
[2020-10-02] MEDS ORDERED: MIDODRINE HCL5 MG PO (10:30)
[2020-10-02] MEDS ORDERED: ONDANSETRON HCL 4 MG ORAL DISINTEGRATING TAB PO PRN (10:30)
[2020-10-02] MEDS ORDERED: HUMULIN 70100 UNIT/1 SC (10:32)
[2020-10-02] MEDS: INSULIN LISPRO 100 UNIT/1 ML 3ML VIAL SQ SCH (11:49)
[2020-10-02 12:43] VITALS: BP 108/71
[2020-10-02] MEDS ORDERED: NPH, HUMAN INSULIN ISOPHANE 100 UNIT/1 ML 3ML VIAL SQ SCH (16:30)
== END 2020-10-02 11:30 | disposition home or self-care (01) | DRG 871 ==
LOC: ER 14:54 → ERHOLD 18:18 → ICU 20:26 → MED/SURG3 09-30 13:01
PROVIDERS: ADMIT Internal Medicine; ATTEND Internal Medicine
PROC: 02HV33Z Insertion of Infusion Device into Superior Vena Cava, Percutaneous Approach (ICD-10-PCS; principal; 2020-09-15)
PROC: 3E043XZ Introduction of Vasopressor into Central Vein, Percutaneous Approach (ICD-10-PCS; 2020-09-15)
PROC: 05PY33Z Removal of Infusion Device from Upper Vein, Percutaneous Approach (ICD-10-PCS; 2020-10-01)
PROC: 02HV33Z Insertion of Infusion Device into Superior Vena Cava, Percutaneous Approach (ICD-10-PCS; 2020-10-01)
PROC: 0JH63XZ Insertion of Tunneled Vascular Access Device into Chest Subcutaneous Tissue and Fascia, Percutaneous Approach (ICD-10-PCS; 2020-10-01)
PROC: B548ZZA Ultrasonography of Superior Vena Cava, Guidance (ICD-10-PCS; 2020-10-01)
DX: A41.9 Sepsis, unspecified organism (principal); U07.1 COVID-19; I50.23 Acute on chronic systolic (congestive) heart failure; R57.8 Other shock; J12.89 Other viral pneumonia; G93.41 Metabolic encephalopathy; N18.6 End stage renal disease; I13.2 Hypertensive heart and chronic kidney disease with heart failure and with stage 5 chronic kidney disease, or end stage renal disease; N17.9 Acute kidney failure, unspecified; R18.8 Other ascites; E87.1 Hypo-osmolality and hyponatremia; N39.0 Urinary tract infection, site not specified; L03.311 Cellulitis of abdominal wall; R65.20 Severe sepsis without septic shock; N18.30 Chronic kidney disease, stage 3 unspecified; I25.10 Atherosclerotic heart disease of native coronary artery without angina pectoris; E87.5 Hyperkalemia; E11.22 Type 2 diabetes mellitus with diabetic chronic kidney disease; I25.2 Old myocardial infarction; E78.5 Hyperlipidemia, unspecified; Z95.1 Presence of aortocoronary bypass graft; D50.0 Iron deficiency anemia secondary to blood loss (chronic); R33.9 Retention of urine, unspecified; K74.60 Unspecified cirrhosis of liver; E83.51 Hypocalcemia; R31.29 Other microscopic hematuria; N26.1 Atrophy of kidney (terminal); E66.9 Obesity, unspecified
CPT/HCPCS: 36415; 36555; 36558; 36600; 51700; 51701; 71045; 71250; 74176; 74470; 76705; 76770; 77001; 80048; 80053; 80061; 81001; 82140; 82150; 82533; 82550; 82553; 82948; 83605; 83690; 83735; 83880; 84100; 84436; 84443; 84479; 84484; 85025; 85610; 85730; 86704; 86705; 86706; 87040; 87086; 87340; 90962; 93005; 93306; 93970; 94660; 96372; 97139; 99152; 99153; 99284; C1769; C1892; J0610; J0692; J0696; J1644; J1817; J1940; J2001; J2250; J2405; J3010; J3370; J7030; J7050; J7799; U0002

== ENCOUNTER 2020-11-07 01:12 | Inpatient (IN) | payer MEDICAID ==
[~2020-11-07] VITALS: Ht 167.6 cm; Wt 113.9 kg
[~2020-11-07 01:12] MED LIST changes: -ASPIRIN 81 MG CHEW TAB ONE; +ASPIRIN81 MG PO; +ATORVASTATIN CA20 MG PO; +CARVEDILOL3.125 MG PO; +CLONAZEPAM0.5 MG PO; +CLOPIDOGREL75 MG PO; +CO Q-10200 MG PO; -FENTANYL CITRATE/PF 100MCG/2 ML INJ ONE; +GABAPENTIN300 MG PO; +GLIMEPIRIDE2 MG PO; -HEPARIN SOD (PORCINE) 1000 UNIT/ML 30ML ONE; -HEPARIN SOD/SOD CHLORIDE 2,000 ML ONE; +HUMULIN 70100 UNIT/1 SC; -IOPAMIDOL 370 MG/ML 200 ML INFUS..BTL INJ ONE; -LIDOCAINE HCL 2% LOCAL 20 ML VIAL ONE; +LISINOPRIL10 MG PO; +MELATONIN10 M1 PO; +METOLAZONE5 MG PO; -MIDAZOLAM HCL 2 MG/2 ML VIAL ONE; +MIDODRINE HCL5 MG PO; -MORPHINE SULFATE INJ 4 MG/ML INJ 1ML IV PRN; -MORPHINE SULFATE INJ 4 MG/ML INJ 1ML IV STA; -NITROGLYCERIN/D5W 200 MCG/ML 250 ML ONE; -ONDANSETRON HCL INJ 2MG/ML 2ML 2 MG/ML VIAL IV ONE; -ONDANSETRON HCL INJ 2MG/ML 2ML 2 MG/ML VIAL IV PRN; -SODIUM CHLORIDE 0.9% 1000ML 1,000 ML ONE; -VERAPAMIL HCL 2.5 MG/ML 2 ML VIAL ONE
[2020-11-07 02:05] LABS: BASOPHILS # (AUTO) 0.1 (0.0-0.1); BASOPHILS % 1.1 % (0.0-1.0); EOSINOPHILS # (AUTO) 0.3 (0.0-0.4); EOSINOPHILS % 3.3 % (0.0-6.0); HEMOGLOBIN 9.7 g/dL (14.0-18.0); LYMPHOCYTES # (AUTO) 1.2 (1.0-3.2); LYMPHOCYTES % 13.1 % (18.0-39.1); MEAN CORPUSCULAR HEMOGLOBIN 24.7 pg (28-32); MEAN CORPUSCULAR HGB CONC 28.5 g/dL (31-35); MEAN CORPUSCULAR VOLUME 86.5 fL (81-99); MONOCYTES # (AUTO) 0.9 (0.2-0.8); MONOCYTES % 9.3 % (4.4-11.3); NEUTROPHILS # (AUTO) 6.9 (2.1-6.9); NEUTROPHILS % 72.8 % (38.7-80.0); PLATELET COUNT 328 x10e3/uL (140-360); RED BLOOD COUNT 3.93 x10e6/uL (4.3-5.7); RED CELL DISTRIBUTION WIDTH 23.9 % (11.7-14.4)
[2020-11-07 02:16] LABS: INR 1.36; PROTHROMBIN TIME 17.7 seconds (11.9-14.5)
[2020-11-07 02:32] LABS: ALBUMIN 2.2 g/dL (3.5-5.0); ALBUMIN/GLOBULIN RATIO 0.4 (0.8-2.0); ANION GAP 20.4 mmol/L (8-16); CALCIUM 7.9 mg/dL (8.4-10.2); CREATININE, SERUM 3.33 mg/dL (0.72-1.25); POTASSIUM 4.4 mmol/L (3.5-5.1)
[2020-11-07 04:00] LABS: CREATINE KINASE MB 0.8 ng/mL (0-5.0)
[2020-11-07] MEDS ORDERED: ASPIRIN 81 MG CHEW TAB PO ONE (04:30)
[2020-11-07] MEDS ORDERED: DEXTROSE 50% SYRINGE 50 ML IV PRN (08:15)
[2020-11-07] MEDS: INSULIN LISPRO 100 UNIT/1 ML 3ML VIAL SQ SCH ×3 (08:30→21:00)
[2020-11-07] MEDS ORDERED: MIDODRINE HCL 5 MG TABLET PO SCH (09:00)
[2020-11-07] MEDS: MIDODRINE HCL 5 MG TABLET PO SCH ×3 (12:14→19:18)
[2020-11-07] MEDS ORDERED: ALBUMIN 25% 12.5GM 50ML 150 ML IV ONE (12:45)
[2020-11-07 12:51] LABS: CREATINE KINASE 28 IU/L (30-200)
[2020-11-07] MEDS ORDERED: ALBUMIN 25% 12.5GM 50ML 50 ML IV ONE (13:17)
[2020-11-07 15:05] VITALS: BP 105/68
[2020-11-07 15:25] VITALS: BP 105/68
[2020-11-07] MEDS: HUMULIN 70/30 VIAL SQ SCH (16:30)
[2020-11-07 20:25] VITALS: BP 89/76
[2020-11-07] MEDS: MELATONIN 5 MG TABLET PO SCH (21:00)
[2020-11-07 22:12] LABS: CREATINE KINASE 29 IU/L (30-200)
[2020-11-07 23:56] VITALS: BP 92/79
[2020-11-08] VITALS (8 sets, daily range): BP systolic 92–114; BP diastolic 57–79
[2020-11-08] MEDS: HUMULIN 70/30 VIAL SQ SCH ×3 (07:30→17:10)
[2020-11-08] MEDS: INSULIN LISPRO 100 UNIT/1 ML 3ML VIAL SQ SCH ×4 (08:02→21:00)
[2020-11-08 08:05] LABS: BASOPHILS # (AUTO) 0.1 (0.0-0.1); BASOPHILS % 0.9 % (0.0-1.0); EOSINOPHILS # (AUTO) 0.1 (0.0-0.4); HEMATOCRIT 36.1 % (38.2-49.6); HEMOGLOBIN 10.3 g/dL (14.0-18.0); LYMPHOCYTES # (AUTO) 1.1 (1.0-3.2); LYMPHOCYTES % 15.2 % (18.0-39.1); MEAN CORPUSCULAR HEMOGLOBIN 24.9 pg (28-32); MEAN CORPUSCULAR HGB CONC 28.5 g/dL (31-35); MEAN CORPUSCULAR VOLUME 87.2 fL (81-99); MONOCYTES # (AUTO) 0.6 (0.2-0.8); NEUTROPHILS % 72.3 % (38.7-80.0); PLATELET COUNT 326 x10e3/uL (140-360); RED BLOOD COUNT 4.14 x10e6/uL (4.3-5.7); RED CELL DISTRIBUTION WIDTH 23.3 % (11.7-14.4)
[2020-11-08 08:34] LABS: ALBUMIN 2.4 g/dL (3.5-5.0); ALBUMIN/GLOBULIN RATIO 0.5 (0.8-2.0); ANION GAP 18.3 mmol/L (8-16); CALCIUM 8.3 mg/dL (8.4-10.2); CREATININE, SERUM 3.33 mg/dL (0.72-1.25); POTASSIUM 4.3 mmol/L (3.5-5.1)
[2020-11-08] MEDS: MIDODRINE HCL 5 MG TABLET PO SCH ×3 (09:20→17:10)
[2020-11-08 10:58] LABS: ANISOCYTOSIS MARKED; PLATELET ESTIMATE ADEQUATE; RBC MORPHOLOGY COMMENT ABNORMAL
[2020-11-08 11:00] LABS: BURR CELLS SLIGHT
[2020-11-08 11:01] LABS: OVALOCYTES FEW; PLATELET MORPHOLOGY COMMENT RARE EDTA CLUMPING; POLYCHROMASIA FEW
[2020-11-08 11:02] LABS: HYPOCHROMASIA SLIGHT
[2020-11-08] MEDS ORDERED: SODIUM CHLORIDE 0.9% 1000ML 2,000 ML ONE (17:51)
[2020-11-08] MEDS ORDERED: SODIUM CHLORIDE 0.9% 250ML 750 ML IV PRN (18:30)
[2020-11-08] MEDS ORDERED: HEPARIN SOD (PORCINE) 1000 UNIT/ML SDV IV PRN (18:30)
[2020-11-08] MEDS ORDERED: SODIUM CHLORIDE 0.9% 1000ML 2,000 ML IV PRN (18:30)
[2020-11-08] MEDS: MELATONIN 5 MG TABLET PO SCH (22:03)
[2020-11-09 00:13] VITALS: BP 99/67
[2020-11-09 05:15] VITALS: BP 96/56
[2020-11-09] MEDS: HUMULIN 70/30 VIAL SQ SCH (07:30)
[2020-11-09] MEDS: INSULIN LISPRO 100 UNIT/1 ML 3ML VIAL SQ SCH ×2 (07:30→11:30)
[2020-11-09 08:40] VITALS: BP 115/68
[2020-11-09 09:16] VITALS: BP 115/68
[2020-11-09] MEDS: MIDODRINE HCL 5 MG TABLET PO SCH (09:19)
[2020-11-09] MEDS ORDERED: LASIX40 MG PO (10:54)
[2020-11-09 12:10] VITALS: BP 110/78
== END 2020-11-09 12:25 | disposition home or self-care (01) | DRG 291 ==
LOC: ER 01:23 → ERHOLD 04:25 → MED/SURG3 15:04
PROVIDERS: ADMIT Internal Medicine; ATTEND Internal Medicine
PROC: 0W9G3ZZ Drainage of Peritoneal Cavity, Percutaneous Approach (ICD-10-PCS; principal; 2020-11-07)
PROC: 5A1D70Z Performance of Urinary Filtration, Intermittent, Less than 6 Hours Per Day (ICD-10-PCS; 2020-11-08)
DX: I13.2 Hypertensive heart and chronic kidney disease with heart failure and with stage 5 chronic kidney disease, or end stage renal disease (principal); N18.6 End stage renal disease; U07.1 COVID-19; I50.33 Acute on chronic diastolic (congestive) heart failure; R18.8 Other ascites; Z99.2 Dependence on renal dialysis; J06.9 Acute upper respiratory infection, unspecified; E11.22 Type 2 diabetes mellitus with diabetic chronic kidney disease; I25.2 Old myocardial infarction; D64.9 Anemia, unspecified; Z79.4 Long term (current) use of insulin
CPT/HCPCS: 36415; 49083; 71045; 74176; 80053; 82550; 82553; 82948; 83880; 84484; 85025; 85610; 86704; 86706; 87340; 93005; 99251; 99284; J1644; J7030; U0002

== ENCOUNTER 2020-12-11 15:36 | Emergency (ER) | payer MEDICAID, OTHER ==
[~2020-12-11] VITALS: Ht 320 cm; Wt 113.9 kg
[~2020-12-11 15:36] MED LIST changes: +LASIX40 MG PO
[2020-12-11 16:03] LABS: BASOPHILS # (AUTO) 0.1 (0.0-0.1); BASOPHILS % 0.9 % (0.0-1.0); EOSINOPHILS # (AUTO) 0.2 (0.0-0.4); EOSINOPHILS % 2.4 % (0.0-6.0); HEMATOCRIT 36.2 % (38.2-49.6); HEMOGLOBIN 10.7 g/dL (14.0-18.0); LYMPHOCYTES # (AUTO) 0.9 (1.0-3.2); LYMPHOCYTES % 13.3 % (18.0-39.1); MEAN CORPUSCULAR HEMOGLOBIN 26.6 pg (28-32); MEAN CORPUSCULAR HGB CONC 29.6 g/dL (31-35); MEAN CORPUSCULAR VOLUME 89.8 fL (81-99); MONOCYTES # (AUTO) 0.9 (0.2-0.8); MONOCYTES % 12.6 % (4.4-11.3); NEUTROPHILS # (AUTO) 4.9 (2.1-6.9); NEUTROPHILS % 70.5 % (38.7-80.0); PLATELET COUNT 238 x10e3/uL (140-360); RED BLOOD COUNT 4.03 x10e6/uL (4.3-5.7); RED CELL DISTRIBUTION WIDTH 19.2 % (11.7-14.4)
[2020-12-11 16:21] LABS: ALBUMIN 2.6 g/dL (3.5-5.0); ALBUMIN/GLOBULIN RATIO 0.4 (0.8-2.0); ANION GAP 16.7 mmol/L (8-16); CALCIUM 8.5 mg/dL (8.4-10.2); CREATININE, SERUM 3.29 mg/dL (0.72-1.25); POTASSIUM 3.7 mmol/L (3.5-5.1)
[2020-12-11 16:27] LABS: CREATINE KINASE MB 1.1 ng/mL (0-5.0)
[2020-12-11] MEDS ORDERED: ALBUMIN 25% 12.5GM 0.25 GM/ML BTL IV ONE (19:00)
[2020-12-11 22:21] VITALS: BP 101/55
== END 2020-12-11 22:23 | disposition home or self-care (01) ==
LOC: ER 15:40
DX: R18.8 Other ascites (principal); E87.70 Fluid overload, unspecified; I12.0 Hypertensive chronic kidney disease with stage 5 chronic kidney disease or end stage renal disease; E11.22 Type 2 diabetes mellitus with diabetic chronic kidney disease; N18.6 End stage renal disease; Z99.2 Dependence on renal dialysis; I50.9 Heart failure, unspecified; R06.02 Shortness of breath
CPT/HCPCS: 36415; 49083; 71045; 74470; 80053; 82550; 82553; 83880; 84484; 85025; 93005; 99283

== ENCOUNTER 2021-01-10 11:22 | Emergency (ER) | payer MEDICAID, OTHER ==
[~2021-01-10] VITALS: Ht 320 cm; Wt 113.9 kg
[2021-01-10 11:51] LABS: BASOPHILS # (AUTO) 0.1 (0.0-0.1); BASOPHILS % 1.1 % (0.0-1.0); EOSINOPHILS # (AUTO) 0.4 (0.0-0.4); EOSINOPHILS % 5.1 % (0.0-6.0); HEMATOCRIT 33.5 % (38.2-49.6); HEMOGLOBIN 10.3 g/dL (14.0-18.0); LYMPHOCYTES # (AUTO) 1.1 (1.0-3.2); LYMPHOCYTES % 14.3 % (18.0-39.1); MEAN CORPUSCULAR HEMOGLOBIN 27.8 pg (28-32); MEAN CORPUSCULAR HGB CONC 30.7 g/dL (31-35); MEAN CORPUSCULAR VOLUME 90.3 fL (81-99); MONOCYTES # (AUTO) 0.8 (0.2-0.8); MONOCYTES % 10.8 % (4.4-11.3); NEUTROPHILS # (AUTO) 5.1 (2.1-6.9); NEUTROPHILS % 68.4 % (38.7-80.0); PLATELET COUNT 225 x10e3/uL (140-360); RED BLOOD COUNT 3.71 x10e6/uL (4.3-5.7); RED CELL DISTRIBUTION WIDTH 16.7 % (11.7-14.4)
[2021-01-10 12:05] LABS: INR 1.22; PROTHROMBIN TIME 16.1 seconds (11.9-14.5)
[2021-01-10 12:14] LABS: ALBUMIN 2.9 g/dL (3.5-5.0); ALBUMIN/GLOBULIN RATIO 0.5 (0.8-2.0); ANION GAP 17.2 mmol/L (8-16); CALCIUM 8.7 mg/dL (8.4-10.2); CREATININE, SERUM 3.53 mg/dL (0.72-1.25); POTASSIUM 4.2 mmol/L (3.5-5.1)
[2021-01-10] MEDS ORDERED: ALBUMIN 25% 12.5GM 50ML 150 ML IV ONE (12:34)
[2021-01-10 13:54] VITALS: BP 94/65
== END 2021-01-10 13:57 | disposition home or self-care (01) ==
LOC: ER 11:35
DX: R18.8 Other ascites (principal); I12.0 Hypertensive chronic kidney disease with stage 5 chronic kidney disease or end stage renal disease; E11.22 Type 2 diabetes mellitus with diabetic chronic kidney disease; N18.6 End stage renal disease; Z99.2 Dependence on renal dialysis; I50.9 Heart failure, unspecified; I25.2 Old myocardial infarction
CPT/HCPCS: 36415; 49083; 74470; 80053; 85025; 85610; 99284; C1729

== ENCOUNTER 2021-01-29 11:11 | Emergency (ER) | payer MEDICAID, OTHER ==
[~2021-01-29] VITALS: Ht 320 cm; Wt 113.9 kg
[2021-01-29] MEDS ORDERED: ALBUMIN 25% 12.5GM 50ML 100 ML IV ONE (14:47)
[2021-01-29 16:22] VITALS: BP 143/71
== END 2021-01-29 16:00 | disposition home or self-care (01) ==
LOC: ER 11:45
DX: R18.8 Other ascites (principal); I12.0 Hypertensive chronic kidney disease with stage 5 chronic kidney disease or end stage renal disease; E11.22 Type 2 diabetes mellitus with diabetic chronic kidney disease; N18.6 End stage renal disease; Z99.2 Dependence on renal dialysis; K76.9 Liver disease, unspecified
CPT/HCPCS: 49083; 74470; 99284

== ENCOUNTER 2021-02-28 09:58 | Emergency (ER) | payer OTHER, MEDICAID ==
[~2021-02-28] VITALS: Ht 167.6 cm; Wt 100.4 kg
[2021-02-28 11:18] LABS: BASOPHILS # (AUTO) 0.1 (0.0-0.1); BASOPHILS % 0.8 % (0.0-1.0); EOSINOPHILS # (AUTO) 0.1 (0.0-0.4); EOSINOPHILS % 1.1 % (0.0-6.0); HEMATOCRIT 34.2 % (38.2-49.6); HEMOGLOBIN 10.6 g/dL (14.0-18.0); LYMPHOCYTES # (AUTO) 1.1 (1.0-3.2); LYMPHOCYTES % 12.6 % (18.0-39.1); MEAN CORPUSCULAR VOLUME 90.2 fL (81-99); MONOCYTES # (AUTO) 1.2 (0.2-0.8); MONOCYTES % 13.7 % (4.4-11.3); NEUTROPHILS # (AUTO) 6.1 (2.1-6.9); NEUTROPHILS % 71.6 % (38.7-80.0); PLATELET COUNT 293 x10e3/uL (140-360); RED BLOOD COUNT 3.79 x10e6/uL (4.3-5.7); RED CELL DISTRIBUTION WIDTH 16.9 % (11.7-14.4)
[2021-02-28 11:31] LABS: INR 1.24; PROTHROMBIN TIME 16.3 seconds (11.9-14.5)
[2021-02-28 12:46] VITALS: BP 95/69
== END 2021-02-28 12:47 | disposition home or self-care (01) ==
LOC: ER 10:30
DX: R18.8 Other ascites (principal); R06.00 Dyspnea, unspecified; I12.0 Hypertensive chronic kidney disease with stage 5 chronic kidney disease or end stage renal disease; E11.22 Type 2 diabetes mellitus with diabetic chronic kidney disease; N18.6 End stage renal disease; Z99.2 Dependence on renal dialysis; I50.9 Heart failure, unspecified; I25.2 Old myocardial infarction
CPT/HCPCS: 36415; 49083; 85025; 85610; 99283

== ENCOUNTER 2021-03-28 09:25 | Emergency (ER) | payer OTHER, MEDICAID ==
[~2021-03-28] VITALS: Ht 167.6 cm; Wt 100.2 kg
[2021-03-28] MEDS ORDERED: MIDODRINE HCL 5 MG TABLET PO STA (09:51)
[2021-03-28 10:18] LABS: BASOPHILS # (AUTO) 0.1 (0.0-0.1); BASOPHILS % 0.7 % (0.0-1.0); EOSINOPHILS # (AUTO) 0.2 (0.0-0.4); EOSINOPHILS % 2.3 % (0.0-6.0); HEMATOCRIT 32.1 % (38.2-49.6); LYMPHOCYTES % 12.6 % (18.0-39.1); MEAN CORPUSCULAR HEMOGLOBIN 27.9 pg (28-32); MEAN CORPUSCULAR HGB CONC 31.2 g/dL (31-35); MEAN CORPUSCULAR VOLUME 89.7 fL (81-99); NEUTROPHILS # (AUTO) 5.3 (2.1-6.9); NEUTROPHILS % 70.1 % (38.7-80.0); PLATELET COUNT 229 x10e3/uL (140-360); RED BLOOD COUNT 3.58 x10e6/uL (4.3-5.7); RED CELL DISTRIBUTION WIDTH 18.2 % (11.7-14.4)
[2021-03-28 11:01] LABS: INR 1.29; PARTIAL THROMBOPLASTIN TIME 33.2 seconds (23.8-35.5); PROTHROMBIN TIME 16.8 seconds (11.9-14.5)
[2021-03-28 11:12] LABS: ALBUMIN 2.8 g/dL (3.5-5.0); ALBUMIN/GLOBULIN RATIO 0.5 (0.8-2.0); ANION GAP 18.5 mmol/L (8-16); CALCIUM 8.8 mg/dL (8.4-10.2); CREATININE, SERUM 4.48 mg/dL (0.72-1.25); POTASSIUM 4.5 mmol/L (3.5-5.1)
[2021-03-28 11:18] LABS: CREATINE KINASE MB 2.2 ng/mL (0-5.0)
[2021-03-28] MEDS ORDERED: ALBUMIN 25% 12.5GM 50ML 100 ML IV ONE (11:46)
[2021-03-28 13:14] VITALS: BP 89/65
== END 2021-03-28 13:51 | disposition home or self-care (01) ==
LOC: ER 09:46
DX: R18.8 Other ascites (principal); E87.70 Fluid overload, unspecified; R77.8 Other specified abnormalities of plasma proteins; I12.0 Hypertensive chronic kidney disease with stage 5 chronic kidney disease or end stage renal disease; E11.22 Type 2 diabetes mellitus with diabetic chronic kidney disease; N18.6 End stage renal disease; Z99.2 Dependence on renal dialysis; R94.31 Abnormal electrocardiogram [ECG] [EKG]; I50.9 Heart failure, unspecified; I25.2 Old myocardial infarction
CPT/HCPCS: 36415; 49083; 71045; 74470; 80053; 82550; 82553; 84484; 85025; 85610; 85730; 93005; 99284

== ENCOUNTER 2021-04-11 14:38 | Inpatient (IN) | payer BC, MEDICAID, OTHER ==
[~2021-04-11] VITALS: Ht 167.6 cm; Wt 104.0 kg
[2021-04-11 15:12] LABS: BASOPHILS # (AUTO) 0.1 (0.0-0.1); BASOPHILS % 0.5 % (0.0-1.0); EOSINOPHILS # (AUTO) 0.2 (0.0-0.4); EOSINOPHILS % 1.5 % (0.0-6.0); HEMATOCRIT 32.7 % (38.2-49.6); HEMOGLOBIN 10.1 g/dL (14.0-18.0); LYMPHOCYTES # (AUTO) 0.9 (1.0-3.2); LYMPHOCYTES % 8.5 % (18.0-39.1); MEAN CORPUSCULAR HEMOGLOBIN 27.5 pg (28-32); MEAN CORPUSCULAR HGB CONC 30.9 g/dL (31-35); MEAN CORPUSCULAR VOLUME 89.1 fL (81-99); MONOCYTES # (AUTO) 0.6 (0.2-0.8); MONOCYTES % 5.7 % (4.4-11.3); NEUTROPHILS % 83.4 % (38.7-80.0); PLATELET COUNT 319 x10e3/uL (140-360); RED BLOOD COUNT 3.67 x10e6/uL (4.3-5.7); RED CELL DISTRIBUTION WIDTH 18.3 % (11.7-14.4)
[2021-04-11] MEDS ORDERED: PIPERACILLIN/TAZO 4.5 GM 100 ML IV ONE (15:15)
[2021-04-11 15:29] LABS: ALBUMIN 2.3 g/dL (3.5-5.0); ALBUMIN/GLOBULIN RATIO 0.4 (0.8-2.0); ANION GAP 22.9 mmol/L (8-16); CALCIUM 8.4 mg/dL (8.4-10.2); CREATININE, SERUM 5.03 mg/dL (0.72-1.25); POTASSIUM 3.9 mmol/L (3.5-5.1)
[2021-04-11] MEDS ORDERED: Vancomycin IV 1 GM in SODIUM CHLORIDE 0.9% 250ML 250 ML IV ONE (16:00)
[2021-04-11] MEDS ORDERED: INSULIN REGULAR, HUMAN 100 UNIT/1 ML SQ ONE (16:45)
[2021-04-12] MEDS ORDERED: CLONAZEPAM 0.5 MG TAB PO PRN (07:15)
[2021-04-12 07:44] LABS: BASOPHILS # (AUTO) 0.1 (0.0-0.1); BASOPHILS % 0.6 % (0.0-1.0); EOSINOPHILS # (AUTO) 0.2 (0.0-0.4); HEMATOCRIT 31.3 % (38.2-49.6); HEMOGLOBIN 9.8 g/dL (14.0-18.0); LYMPHOCYTES % 9.5 % (18.0-39.1); MEAN CORPUSCULAR HEMOGLOBIN 27.5 pg (28-32); MEAN CORPUSCULAR HGB CONC 31.3 g/dL (31-35); MEAN CORPUSCULAR VOLUME 87.9 fL (81-99); MONOCYTES # (AUTO) 0.7 (0.2-0.8); MONOCYTES % 6.9 % (4.4-11.3); NEUTROPHILS # (AUTO) 8.1 (2.1-6.9); NEUTROPHILS % 80.7 % (38.7-80.0); PLATELET COUNT 287 x10e3/uL (140-360); RED BLOOD COUNT 3.56 x10e6/uL (4.3-5.7); RED CELL DISTRIBUTION WIDTH 18.1 % (11.7-14.4)
[2021-04-12] MEDS ORDERED: DEXTROSE 50% SYRINGE 50 ML IV PRN (08:00)
[2021-04-12] MEDS: INSULIN LISPRO 100 UNIT/1 ML 3ML VIAL SQ SCH ×4 (08:16→22:00)
[2021-04-12] MEDS: HUMULIN 70/30 VIAL SQ SCH ×2 (08:16→16:30)
[2021-04-12] MEDS: ASPIRIN 81 MG CHEW TAB PO SCH (08:17)
[2021-04-12] MEDS: MIDODRINE HCL 5 MG TABLET PO SCH ×3 (08:17→17:00)
[2021-04-12] MEDS: CLOPIDOGREL BISULFATE 75 MG TAB PO SCH (08:17)
[2021-04-12] MEDS: FUROSEMIDE 40 MG TAB PO SCH (08:17)
[2021-04-12 08:24] LABS: ANION GAP 19.8 mmol/L (8-16); CALCIUM 8.4 mg/dL (8.4-10.2); CREATININE, SERUM 5.63 mg/dL (0.72-1.25); POTASSIUM 3.8 mmol/L (3.5-5.1)
[2021-04-12] MEDS: UBIDECARENONE 200 MG PO SCH (08:47)
[2021-04-12] MEDS: PIPERACILLIN/TAZOBACTAM 2.25 GM in SODIUM CHLORIDE 0.9% 50ML 50 ML IV SCH ×2 (12:39→22:00)
[2021-04-12] MEDS: Vancomycin IV 1 GM in SODIUM CHLORIDE 0.9% 250ML 250 ML IV SCH (17:12)
[2021-04-12 20:43] VITALS: BP 124/68
[2021-04-12 20:47] VITALS: BP 124/68
[2021-04-12] MEDS: MELATONIN 5 MG TABLET PO SCH (22:00)
[2021-04-12] MEDS: ATORVASTATIN 40 MG TAB PO SCH (22:00)
[2021-04-12] MEDS ORDERED: SODIUM CHLORIDE 0.9% 250ML 250 ML ONE (22:24)
[2021-04-13] VITALS (9 sets, daily range): BP systolic 109–127; BP diastolic 66–80
[2021-04-13] MEDS: PIPERACILLIN/TAZOBACTAM 2.25 GM in SODIUM CHLORIDE 0.9% 50ML 50 ML IV SCH ×5 (04:56→17:57)
[2021-04-13] MEDS: INSULIN LISPRO 100 UNIT/1 ML 3ML VIAL SQ SCH ×4 (07:30→23:03)
[2021-04-13] MEDS: HUMULIN 70/30 VIAL SQ SCH ×2 (07:30→16:30)
[2021-04-13] MEDS: UBIDECARENONE 200 MG PO SCH (09:00)
[2021-04-13] MEDS: MIDODRINE HCL 5 MG TABLET PO SCH ×3 (09:16→17:58)
[2021-04-13] MEDS: CLOPIDOGREL BISULFATE 75 MG TAB PO SCH (09:16)
[2021-04-13] MEDS: ASPIRIN 81 MG CHEW TAB PO SCH (09:16)
[2021-04-13] MEDS: FUROSEMIDE 40 MG TAB PO SCH (09:16)
[2021-04-13] MEDS ORDERED: SODIUM CHLORIDE 0.9% 1000ML 1,000 ML ONE (16:33)
[2021-04-13 17:48] LABS: BASOPHILS # (AUTO) 0.1 (0.0-0.1); BASOPHILS % 0.8 % (0.0-1.0); EOSINOPHILS # (AUTO) 0.2 (0.0-0.4); EOSINOPHILS % 1.7 % (0.0-6.0); HEMATOCRIT 30.8 % (38.2-49.6); HEMOGLOBIN 9.6 g/dL (14.0-18.0); LYMPHOCYTES # (AUTO) 1.3 (1.0-3.2); LYMPHOCYTES % 10.7 % (18.0-39.1); MEAN CORPUSCULAR HEMOGLOBIN 27.8 pg (28-32); MEAN CORPUSCULAR HGB CONC 31.2 g/dL (31-35); MEAN CORPUSCULAR VOLUME 89.3 fL (81-99); MONOCYTES # (AUTO) 0.8 (0.2-0.8); MONOCYTES % 6.9 % (4.4-11.3); NEUTROPHILS # (AUTO) 9.4 (2.1-6.9); NEUTROPHILS % 79.5 % (38.7-80.0); PLATELET COUNT 308 x10e3/uL (140-360); RED BLOOD COUNT 3.45 x10e6/uL (4.3-5.7); RED CELL DISTRIBUTION WIDTH 18.4 % (11.7-14.4)
[2021-04-13 18:03] LABS: ALBUMIN 2.3 g/dL (3.5-5.0); ALBUMIN/GLOBULIN RATIO 0.4 (0.8-2.0); ANION GAP 19.9 mmol/L (8-16); CALCIUM 8.6 mg/dL (8.4-10.2); CREATININE, SERUM 6.5 mg/dL (0.72-1.25); POTASSIUM 3.9 mmol/L (3.5-5.1)
[2021-04-13] MEDS ORDERED: HEPARIN SOD (PORCINE) 1000 UNIT/ML SDV ONE (20:05)
[2021-04-13] MEDS: MELATONIN 5 MG TABLET PO SCH (22:40)
[2021-04-13] MEDS: ATORVASTATIN 40 MG TAB PO SCH (22:40)
[2021-04-14] VITALS (8 sets, daily range): BP systolic 104–117; BP diastolic 55–78
[2021-04-14] MEDS: PIPERACILLIN/TAZOBACTAM 2.25 GM in SODIUM CHLORIDE 0.9% 50ML 50 ML IV SCH ×4 (04:51→23:07)
[2021-04-14] MEDS: HYDROCODONE/APAP 5MG-325MG TAB PO PRN ×2 (04:51→10:54)
[2021-04-14] MEDS: INSULIN LISPRO 100 UNIT/1 ML 3ML VIAL SQ SCH ×4 (07:30→21:00)
[2021-04-14] MEDS: HUMULIN 70/30 VIAL SQ SCH ×2 (07:30→16:30)
[2021-04-14] MEDS: UBIDECARENONE 200 MG PO SCH (07:42)
[2021-04-14] MEDS: MIDODRINE HCL 5 MG TABLET PO SCH ×3 (08:52→17:18)
[2021-04-14] MEDS: FUROSEMIDE 40 MG TAB PO SCH (08:52)
[2021-04-14] MEDS: CLOPIDOGREL BISULFATE 75 MG TAB PO SCH (08:52)
[2021-04-14] MEDS: ASPIRIN 81 MG CHEW TAB PO SCH (08:52)
[2021-04-14] MEDS ORDERED: HEPARIN SOD (PORCINE) 1000 UNIT/ML SDV IV PRN (11:45)
[2021-04-14] MEDS ORDERED: SODIUM CHLORIDE 0.9% 1000ML 2,000 ML IV PRN (11:45)
[2021-04-14] MEDS: ATORVASTATIN 40 MG TAB PO SCH (20:55)
[2021-04-14] MEDS: MELATONIN 5 MG TABLET PO SCH (20:55)
[2021-04-15] VITALS (15 sets, daily range): BP systolic 104–169; BP diastolic 64–95
[2021-04-15] MEDS: PIPERACILLIN/TAZOBACTAM 2.25 GM in SODIUM CHLORIDE 0.9% 50ML 50 ML IV SCH ×5 (03:58→15:35)
[2021-04-15] MEDS: HYDROCODONE/APAP 5MG-325MG TAB PO PRN ×3 (04:03→23:38)
[2021-04-15 05:40] LABS: BASOPHILS # (AUTO) 0.1 (0.0-0.1); BASOPHILS % 1.1 % (0.0-1.0); EOSINOPHILS # (AUTO) 0.3 (0.0-0.4); EOSINOPHILS % 2.9 % (0.0-6.0); HEMATOCRIT 30.5 % (38.2-49.6); HEMOGLOBIN 9.5 g/dL (14.0-18.0); LYMPHOCYTES # (AUTO) 1.4 (1.0-3.2); LYMPHOCYTES % 14.5 % (18.0-39.1); MEAN CORPUSCULAR HEMOGLOBIN 27.5 pg (28-32); MEAN CORPUSCULAR HGB CONC 31.1 g/dL (31-35); MEAN CORPUSCULAR VOLUME 88.4 fL (81-99); MONOCYTES # (AUTO) 0.9 (0.2-0.8); MONOCYTES % 9.5 % (4.4-11.3); NEUTROPHILS # (AUTO) 6.7 (2.1-6.9); NEUTROPHILS % 71.8 % (38.7-80.0); PLATELET COUNT 290 x10e3/uL (140-360); RED BLOOD COUNT 3.45 x10e6/uL (4.3-5.7); RED CELL DISTRIBUTION WIDTH 18.6 % (11.7-14.4)
[2021-04-15 06:21] LABS: CALCIUM 8.7 mg/dL (8.4-10.2); CREATININE, SERUM 5.22 mg/dL (0.72-1.25)
[2021-04-15] MEDS: HUMULIN 70/30 VIAL SQ SCH ×2 (07:30→17:50)
[2021-04-15] MEDS: INSULIN LISPRO 100 UNIT/1 ML 3ML VIAL SQ SCH ×4 (07:30→21:00)
[2021-04-15] MEDS ORDERED: SODIUM CHLORIDE 0.9% 250ML 250 ML ONE (07:45)
[2021-04-15] MEDS: MIDODRINE HCL 5 MG TABLET PO SCH ×3 (08:04→17:50)
[2021-04-15] MEDS ORDERED: HEPARIN SOD (PORCINE) 1000 UNIT/ML 30ML ONE (08:19)
[2021-04-15] MEDS ORDERED: MIDAZOLAM HCL 2 MG/2 ML VIAL ONE (08:19)
[2021-04-15] MEDS ORDERED: FENTANYL CITRATE/PF 100MCG/2 ML INJ ONE (08:19)
[2021-04-15] MEDS ORDERED: IOPAMIDOL 300MG/ML 100 ML INFUS..BTL IV ONE (08:20)
[2021-04-15] MEDS ORDERED: LIDOCAINE HCL 2% LOCAL 20 ML VIAL ONE (08:20)
[2021-04-15] MEDS ORDERED: NITROGLYCERIN/D5W 200 MCG/ML 250 ML ONE (08:20)
[2021-04-15] MEDS ORDERED: SODIUM CHLORIDE 0.9% 1000ML 0 ML ONE (08:20)
[2021-04-15] MEDS ORDERED: HEPARIN SOD/SOD CHLORIDE 2,000 ML ONE (08:20)
[2021-04-15] MEDS: ASPIRIN 81 MG CHEW TAB PO SCH (09:00)
[2021-04-15] MEDS: CLOPIDOGREL BISULFATE 75 MG TAB PO SCH (09:00)
[2021-04-15] MEDS: UBIDECARENONE 200 MG PO SCH (09:00)
[2021-04-15] MEDS ORDERED: CLOPIDOGREL BISULFATE 75 MG TAB ONE (09:55)
[2021-04-15] MEDS ORDERED: ASPIRIN 325 MG TAB ONE (09:55)
[2021-04-15] MEDS ORDERED: SODIUM CHLORIDE 0.9% 1000ML 1,000 ML ONE ×2 (10:02→20:05)
[2021-04-15] MEDS ORDERED: VERAPAMIL HCL 2.5 MG/ML 2 ML VIAL ONE (10:02)
[2021-04-15] MEDS: FUROSEMIDE 40 MG TAB PO SCH (11:23)
[2021-04-15] MEDS ORDERED: ALBUMIN 25% 12.5GM 0.25 GM/ML BTL IV PRN (14:15)
[2021-04-15] MEDS ORDERED: SODIUM CHLORIDE 0.9% 250ML 500 ML IV PRN (14:15)
[2021-04-15] MEDS: CARVEDILOL 3.125 MG TAB PO SCH (17:00)
[2021-04-15] MEDS: Vancomycin IV 1 GM in SODIUM CHLORIDE 0.9% 250ML 250 ML IV SCH (17:43)
[2021-04-15] MEDS: MELATONIN 5 MG TABLET PO SCH (23:00)
[2021-04-15] MEDS: ATORVASTATIN 40 MG TAB PO SCH (23:00)
[2021-04-16] VITALS (8 sets, daily range): BP systolic 90–146; BP diastolic 42–76
[2021-04-16] MEDS: PIPERACILLIN/TAZOBACTAM 2.25 GM in SODIUM CHLORIDE 0.9% 50ML 50 ML IV SCH ×4 (05:27→21:32)
[2021-04-16] MEDS: HYDROCODONE/APAP 5MG-325MG TAB PO PRN ×4 (06:03→18:14)
[2021-04-16 06:08] LABS: BASOPHILS # (AUTO) 0.1 (0.0-0.1); BASOPHILS % 1.2 % (0.0-1.0); EOSINOPHILS # (AUTO) 0.2 (0.0-0.4); EOSINOPHILS % 2.6 % (0.0-6.0); HEMATOCRIT 31.1 % (38.2-49.6); HEMOGLOBIN 9.6 g/dL (14.0-18.0); LYMPHOCYTES # (AUTO) 1.1 (1.0-3.2); LYMPHOCYTES % 13.8 % (18.0-39.1); MEAN CORPUSCULAR HEMOGLOBIN 27.8 pg (28-32); MEAN CORPUSCULAR HGB CONC 30.9 g/dL (31-35); MEAN CORPUSCULAR VOLUME 90.1 fL (81-99); MONOCYTES # (AUTO) 0.7 (0.2-0.8); MONOCYTES % 8.4 % (4.4-11.3); NEUTROPHILS % 73.8 % (38.7-80.0); PLATELET COUNT 301 x10e3/uL (140-360); RED BLOOD COUNT 3.45 x10e6/uL (4.3-5.7); RED CELL DISTRIBUTION WIDTH 18.6 % (11.7-14.4)
[2021-04-16 06:46] LABS: CALCIUM 8.9 mg/dL (8.4-10.2); CREATININE, SERUM 3.61 mg/dL (0.72-1.25)
[2021-04-16] MEDS: HUMULIN 70/30 VIAL SQ SCH ×2 (07:30→16:08)
[2021-04-16] MEDS: INSULIN LISPRO 100 UNIT/1 ML 3ML VIAL SQ SCH ×4 (07:30→21:00)
[2021-04-16] MEDS: UBIDECARENONE 200 MG PO SCH (08:21)
[2021-04-16] MEDS: CARVEDILOL 3.125 MG TAB PO SCH ×2 (08:21→16:08)
[2021-04-16] MEDS: ASPIRIN 81 MG CHEW TAB PO SCH (08:21)
[2021-04-16] MEDS: CLOPIDOGREL BISULFATE 75 MG TAB PO SCH (08:22)
[2021-04-16] MEDS: MIDODRINE HCL 5 MG TABLET PO SCH ×3 (08:22→16:08)
[2021-04-16] MEDS: FUROSEMIDE 40 MG TAB PO SCH (08:22)
[2021-04-16 09:49] LABS: INR 1.28; PROTHROMBIN TIME 16.7 seconds (11.9-14.5)
[2021-04-16] MEDS: ATORVASTATIN 40 MG TAB PO SCH (21:00)
[2021-04-16] MEDS: MELATONIN 5 MG TABLET PO SCH (21:00)
[2021-04-17] VITALS (8 sets, daily range): BP systolic 95–122; BP diastolic 64–82
[2021-04-17] MEDS: PIPERACILLIN/TAZOBACTAM 2.25 GM in SODIUM CHLORIDE 0.9% 50ML 50 ML IV SCH ×4 (04:00→22:00)
[2021-04-17] MEDS ORDERED: BETAMETHASONE DISODIUM PHOS 6 MG/ML VIAL ONE (06:15)
[2021-04-17] MEDS ORDERED: BUPIVACAINE HCL 0.5% INJ 30 ML VIAL INJ ONE (06:15)
[2021-04-17] MEDS ORDERED: Vancomycin IV 1 GM VIAL ONE (06:15)
[2021-04-17] MEDS ORDERED: MUPIROCIN 2% OINT 22 GM TUBE ONE (06:15)
[2021-04-17] MEDS ORDERED: LIDOCAINE HCL 1% LOCAL INJ 20 ML VIAL ONE (06:15)
[2021-04-17] MEDS: INSULIN LISPRO 100 UNIT/1 ML 3ML VIAL SQ SCH ×4 (07:30→21:00)
[2021-04-17] MEDS: HUMULIN 70/30 VIAL SQ SCH ×2 (07:30→16:30)
[2021-04-17] MEDS: UBIDECARENONE 200 MG PO SCH (08:45)
[2021-04-17] MEDS: HYDROCODONE/APAP 5MG-325MG TAB PO PRN ×3 (08:49→20:00)
[2021-04-17] MEDS: ASPIRIN 81 MG CHEW TAB PO SCH (08:49)
[2021-04-17] MEDS: MIDODRINE HCL 5 MG TABLET PO SCH ×3 (08:49→17:43)
[2021-04-17] MEDS: CLOPIDOGREL BISULFATE 75 MG TAB PO SCH (08:50)
[2021-04-17] MEDS: CARVEDILOL 3.125 MG TAB PO SCH ×2 (09:00→15:59)
[2021-04-17] MEDS: FUROSEMIDE 40 MG TAB PO SCH (09:00)
[2021-04-17] MEDS ORDERED: MIDAZOLAM HCL 2 MG/2 ML VIAL ONE (13:56)
[2021-04-17] MEDS ORDERED: FENTANYL CITRATE/PF 100MCG/2 ML INJ ONE (13:56)
[2021-04-17] MEDS ORDERED: LIDOCAINE HCL 2% LOCAL INJ 5 ML SDV VIAL INJ ONE (17:23)
[2021-04-17] MEDS ORDERED: POVIDONE IODINE 0.05% 0.05 % ML PO ONE (17:23)
[2021-04-17] MEDS ORDERED: PROPOFOL IV EMULSION 10 MG/ML 20 ML VIAL ONE (17:23)
[2021-04-17] MEDS ORDERED: SEVOFLURANE INHAL SOLN 250 ML PEN BTL ONE (17:23)
[2021-04-17] MEDS ORDERED: PHENYLEPHRINE HCL 1% 10 MG/ML VIAL ONE (17:23)
[2021-04-17] MEDS: Vancomycin IV 1 GM in SODIUM CHLORIDE 0.9% 250ML 250 ML IV SCH (17:46)
[2021-04-17] MEDS: MELATONIN 5 MG TABLET PO SCH (20:08)
[2021-04-17] MEDS: ATORVASTATIN 40 MG TAB PO SCH (20:08)
[2021-04-18] VITALS (8 sets, daily range): BP systolic 103–127; BP diastolic 65–83
[2021-04-18] MEDS: HYDROCODONE/APAP 5MG-325MG TAB PO PRN ×4 (02:00→22:15)
[2021-04-18] MEDS: PIPERACILLIN/TAZOBACTAM 2.25 GM in SODIUM CHLORIDE 0.9% 50ML 50 ML IV SCH ×4 (04:00→22:55)
[2021-04-18] MEDS: INSULIN LISPRO 100 UNIT/1 ML 3ML VIAL SQ SCH ×4 (07:30→21:30)
[2021-04-18] MEDS: HUMULIN 70/30 VIAL SQ SCH ×2 (07:30→16:30)
[2021-04-18] MEDS: UBIDECARENONE 200 MG PO SCH (09:00)
[2021-04-18] MEDS: CARVEDILOL 3.125 MG TAB PO SCH ×2 (09:00→17:39)
[2021-04-18] MEDS: ASPIRIN 81 MG CHEW TAB PO SCH (09:38)
[2021-04-18] MEDS: FUROSEMIDE 40 MG TAB PO SCH (09:39)
[2021-04-18] MEDS: MIDODRINE HCL 5 MG TABLET PO SCH ×3 (09:39→17:39)
[2021-04-18] MEDS: CLOPIDOGREL BISULFATE 75 MG TAB PO SCH (09:39)
[2021-04-18] MEDS: MELATONIN 5 MG TABLET PO SCH (21:55)
[2021-04-18] MEDS: ATORVASTATIN 40 MG TAB PO SCH (21:55)
[2021-04-19] VITALS (8 sets, daily range): BP systolic 89–112; BP diastolic 62–87
[2021-04-19] MEDS: HYDROCODONE/APAP 5MG-325MG TAB PO PRN ×3 (04:55→23:15)
[2021-04-19] MEDS: PIPERACILLIN/TAZOBACTAM 2.25 GM in SODIUM CHLORIDE 0.9% 50ML 50 ML IV SCH ×4 (04:55→22:00)
[2021-04-19 06:38] LABS: ANION GAP 17.2 mmol/L (8-16); CALCIUM 8.9 mg/dL (8.4-10.2); CREATININE, SERUM 4.9 mg/dL (0.72-1.25); POTASSIUM 4.2 mmol/L (3.5-5.1)
[2021-04-19] MEDS: HUMULIN 70/30 VIAL SQ SCH ×2 (07:30→16:30)
[2021-04-19] MEDS: INSULIN LISPRO 100 UNIT/1 ML 3ML VIAL SQ SCH ×4 (07:30→21:00)
[2021-04-19] MEDS: ASPIRIN 81 MG CHEW TAB PO SCH (08:47)
[2021-04-19] MEDS: MIDODRINE HCL 5 MG TABLET PO SCH ×3 (08:47→17:31)
[2021-04-19] MEDS: UBIDECARENONE 200 MG PO SCH (08:47)
[2021-04-19] MEDS: CLOPIDOGREL BISULFATE 75 MG TAB PO SCH (08:48)
[2021-04-19] MEDS: CARVEDILOL 3.125 MG TAB PO SCH ×2 (09:00→17:00)
[2021-04-19] MEDS: FUROSEMIDE 40 MG TAB PO SCH (09:00)
[2021-04-19] MEDS: Vancomycin IV 1 GM in SODIUM CHLORIDE 0.9% 250ML 250 ML IV SCH ×2 (09:15→15:30)
[2021-04-19] MEDS: DOXYCYCLINE HYCLATE TABLET 100 MG TAB PO SCH (17:31)
[2021-04-19] MEDS: ATORVASTATIN 40 MG TAB PO SCH (21:55)
[2021-04-19] MEDS: MELATONIN 5 MG TABLET PO SCH (21:55)
[2021-04-20 01:21] VITALS: BP 122/80
[2021-04-20] MEDS: PIPERACILLIN/TAZOBACTAM 2.25 GM in SODIUM CHLORIDE 0.9% 50ML 50 ML IV SCH ×2 (04:55→09:32)
[2021-04-20 05:26] VITALS: BP 125/83
[2021-04-20] MEDS: HYDROCODONE/APAP 5MG-325MG TAB PO PRN (05:31)
[2021-04-20] MEDS: HUMULIN 70/30 VIAL SQ SCH (07:30)
[2021-04-20] MEDS: INSULIN LISPRO 100 UNIT/1 ML 3ML VIAL SQ SCH ×2 (07:30→11:30)
[2021-04-20 08:02] VITALS: BP 131/87
[2021-04-20 08:11] VITALS: BP 131/87
[2021-04-20] MEDS: UBIDECARENONE 200 MG PO SCH (09:00)
[2021-04-20] MEDS: MIDODRINE HCL 5 MG TABLET PO SCH ×2 (09:10→13:00)
[2021-04-20] MEDS: DOXYCYCLINE HYCLATE TABLET 100 MG TAB PO SCH (09:10)
[2021-04-20] MEDS: ASPIRIN 81 MG CHEW TAB PO SCH (09:10)
[2021-04-20] MEDS: CLOPIDOGREL BISULFATE 75 MG TAB PO SCH (09:10)
[2021-04-20] MEDS: FUROSEMIDE 40 MG TAB PO SCH (09:10)
[2021-04-20] MEDS: CARVEDILOL 3.125 MG TAB PO SCH (09:11)
[2021-04-20 11:40] VITALS: BP 113/76
== END 2021-04-20 13:48 | disposition home or self-care (01) | DRG 270 ==
LOC: ER 14:42 → ERHOLD 16:00 → MED/SURG3 04-12 18:23
PROVIDERS: ADMIT Internal Medicine; ATTEND Internal Medicine
PROC: 5A1D70Z Performance of Urinary Filtration, Intermittent, Less than 6 Hours Per Day (ICD-10-PCS; 2021-04-13)
PROC: 04CP3ZZ Extirpation of Matter from Right Anterior Tibial Artery, Percutaneous Approach (ICD-10-PCS; 2021-04-15)
PROC: 047P3Z1 Dilation of Right Anterior Tibial Artery using Drug-Coated Balloon, Percutaneous Approach (ICD-10-PCS; 2021-04-15)
PROC: B41D1ZZ Fluoroscopy of Aorta and Bilateral Lower Extremity Arteries using Low Osmolar Contrast (ICD-10-PCS; 2021-04-15)
PROC: 0Y6M0Z9 Detachment at Right Foot, Partial 1st Ray, Open Approach (ICD-10-PCS; principal; 2021-04-16)
PROC: 0HXMXZZ Transfer Right Foot Skin, External Approach (ICD-10-PCS; 2021-04-16)
PROC: 0S9P0ZZ Drainage of Right Toe Phalangeal Joint, Open Approach (ICD-10-PCS; 2021-04-16)
PROC: 0Y6P0Z1 Detachment at Right 1st Toe, High, Open Approach (ICD-10-PCS; 2021-04-16)
DX: E11.52 Type 2 diabetes mellitus with diabetic peripheral angiopathy with gangrene (principal); N18.6 End stage renal disease; L03.115 Cellulitis of right lower limb; L97.518 Non-pressure chronic ulcer of other part of right foot with other specified severity; M86.8X7 Other osteomyelitis, ankle and foot; I96 Gangrene, not elsewhere classified; I13.2 Hypertensive heart and chronic kidney disease with heart failure and with stage 5 chronic kidney disease, or end stage renal disease; I50.22 Chronic systolic (congestive) heart failure; I42.9 Cardiomyopathy, unspecified; E11.22 Type 2 diabetes mellitus with diabetic chronic kidney disease; E11.621 Type 2 diabetes mellitus with foot ulcer; Z79.899 Other long term (current) drug therapy; I70.25 Atherosclerosis of native arteries of other extremities with ulceration; E11.69 Type 2 diabetes mellitus with other specified complication; D64.9 Anemia, unspecified; Z99.2 Dependence on renal dialysis; E66.01 Morbid (severe) obesity due to excess calories; Z68.37 Body mass index [BMI] 37.0-37.9, adult; Z20.822 Contact with and (suspected) exposure to COVID-19
CPT/HCPCS: 36247; 36415; 37229; 75630; 76937; 80048; 80053; 80202; 82948; 83605; 84132; 85025; 85610; 86704; 86706; 87040; 87071; 87075; 87186; 87205; 87340; 87350; 88304; 88311; 93306; 93925; 96361; 97139; 99152; 99153; 99251; 99284; C1724; C1725; C1760; C1769; C1887; J0720; J1644; J1817; J2001; J2250; J2370; J2543; J3010; J3370; J7030; J7050; Q9967; U0002

== ENCOUNTER 2021-04-24 10:19 | Emergency (ER) | payer BC ==
[~2021-04-24] VITALS: Ht 167.6 cm; Wt 103.9 kg
[~2021-04-24 10:19] MED LIST changes: -ALBUMIN 25% 12.5GM 50ML 150 ML IV ONE
== END 2021-04-24 10:40 | disposition home or self-care (01) ==
LOC: ER 10:22
DX: R18.8 Other ascites (principal); I12.0 Hypertensive chronic kidney disease with stage 5 chronic kidney disease or end stage renal disease; E11.22 Type 2 diabetes mellitus with diabetic chronic kidney disease; N18.6 End stage renal disease; Z99.2 Dependence on renal dialysis; I50.9 Heart failure, unspecified; I25.2 Old myocardial infarction
CPT/HCPCS: 99282

== ENCOUNTER → 2021-04-24 | Outpatient (CLI) | payer BC ==
[~2021-04-24] MED LIST changes: +ALBUMIN 25% 12.5GM 50ML 150 ML IV ONE
== END ==
LOC: US 12:19
PROVIDERS: ATTEND Internal Medicine Nephrology
DX: R18.8 Other ascites (principal)
CPT/HCPCS: 49083; C1729

== ENCOUNTER → 2021-05-09 | Outpatient (CLI) | payer BC ==
[~2021-05-09] MED LIST changes: +ALBUMIN 25% 12.5GM 50ML 100 ML IV ONE
== END ==
LOC: US 08:07
PROVIDERS: ATTEND Internal Medicine Nephrology
DX: R18.8 Other ascites (principal); K74.60 Unspecified cirrhosis of liver
CPT/HCPCS: 49083

== ENCOUNTER → 2021-05-30 | Outpatient (CLI) | payer BC ==
[2021-05-30 15:44] LABS: HEMOGLOBIN 8.2 g/dL (14.0-18.0)
[2021-05-30 15:52] LABS: INR 1.4; PROTHROMBIN TIME 17.4 seconds (11.9-14.5)
[2021-05-30 15:53] LABS: PARTIAL THROMBOPLASTIN TIME 31.9 seconds (23.8-35.5)
== END ==
LOC: US 14:41
PROVIDERS: ATTEND Internal Medicine Nephrology
DX: R18.8 Other ascites (principal); K74.60 Unspecified cirrhosis of liver
CPT/HCPCS: 36415; 49083; 82948; 85014; 85049; 85610; 85730

== ENCOUNTER 2021-05-31 11:33 | Emergency (ER) | payer BC ==
[~2021-05-31] VITALS: Ht 167.6 cm; Wt 103.9 kg
[~2021-05-31 11:33] MED LIST changes: -ALBUMIN 25% 12.5GM 50ML 100 ML IV ONE
[2021-05-31] MEDS ORDERED: EPINEPHRINE HCL SYRINGE ONE (15:51)
[2021-05-31] MEDS ORDERED: CALCIUM CHLORIDE 10% 1.36 MEQ/ML 10ML SYR IV ONE (15:51)
[2021-05-31] MEDS ORDERED: AMIODARONE HCL INJ 150MG/3ML ONE (15:51)
[2021-05-31] MEDS ORDERED: SODIUM BICARBONATE 8.4% INJ 50 ML SYR ONE (15:51)
== END 2021-05-31 17:15 | disposition expired ==
LOC: ER 11:38
DX: I46.9 Cardiac arrest, cause unspecified (principal); I12.0 Hypertensive chronic kidney disease with stage 5 chronic kidney disease or end stage renal disease; E11.22 Type 2 diabetes mellitus with diabetic chronic kidney disease; N18.6 End stage renal disease; Z99.2 Dependence on renal dialysis; I50.9 Heart failure, unspecified; I25.2 Old myocardial infarction
CPT/HCPCS: 31500; 92950; 99285; J0171; J0282